=== PATIENT | male | born 1950 | race Caucasian/White ===

== ENCOUNTER 2021-03-12 20:12 | Inpatient (IN) ==
[2021-03-12 20:48] LABS: Basophils % 0.2 % (0.0-0.8); Hematocrit 42.3 VOL% (42.0-52.0); Immature Granulocytes % 1.3 %; Immature Granulocytes Absolute 0.08 #; Lymphocytes # 0.5 10*3/uL (1.4-4.0); Lymphocytes % 8.2 % (21.2-54.2); Mean Corpuscular HGB Conc 33.1 GM/DL (32-36); Mean Corpuscular Volume 82.8 FL (87-102); Mean Platelet Volume 10.1 FL (9.6-12.0); Monocytes % 4.7 % (1.7-12.7); Neutrophils % 85.6 % (38.7-73.9); Platelet Count 228 T/CUMM (130-400); Red Blood Count 5.11 MC/CUMM (3.8-5.5); Red Cell Distribution Width 14.3 % (9.3-17.3)
[2021-03-12 21:02] LABS: Alanine Aminotransferase 29 U/L (16-61); Albumin 2.6 G/DL (3.4-5.0); Alkaline Phosphatase 91 U/L (45-117); Aspartate Amino Transferase 34 U/L (0-37); Blood Urea Nitrogen 20 MG/DL (7-18); Calcium 8.1 MG/DL (8.5-10.1); Carbon Dioxide 20 MMOL/L (21-32); Estimated Glom Filtration Rate 115 ML/MIN; Glucose 471 MG/DL (74-106); Osmolality,Calculated 276.4 MOS/KG (273-304); Potassium 3.3 MMOL/L (3.5-5.1); Sodium 126 MMOL/L (136-145); Total Protein 7.3 G/DL (6.4-8.2)
[2021-03-12] MEDS ORDERED: ONDANSETRON 4 MG/2 ML VIAL IV STA (21:15)
[2021-03-12] MEDS ORDERED: PIPERACILLIN/TAZOBACTAM 3,375 MG in SODIUM CHLORIDE 0.9% 100 ML IV STA (21:15)
[2021-03-12] MEDS ORDERED: FUROSEMIDE 100 MG/10 ML VIAL IV STA (21:15)
[2021-03-12] MEDS ORDERED: INSULIN REGULAR 100 UNIT/ML SUBCUT STA (21:15)
[2021-03-12 21:37] LABS: Ferritin 303.4 ng/ml (26-388)
[2021-03-12] MEDS ORDERED: ENOXAPARIN 100 MG/ML SYRINGE SUBCUT STA (22:11)
[2021-03-12] MEDS ORDERED: POTASSIUM CHLORIDE 20 MEQ TABLET PO STA (22:12)
[2021-03-12] MEDS ORDERED: MAGNESIUM SULF RIDER 2 GM/50 ML PREMIX IV STA (22:12)
[2021-03-12] MEDS ORDERED: DEXAMETHASONE 4 MG/1 ML VIAL IM STA (22:14)
[2021-03-12 23:04] LABS: Bilirubin,Urine Negative (Negative); Blood, Urine Moderate mg/dL (Negative); Glucose,Urine (UA) >=500 mg/dL (Negative); Hyaline Casts,Urine 1 /LPF (0-3); Ketones,Urine 20 mg/dL (Negative); Mucus,Urine Occasional /LPF (Occasional); Nitrite,Urine Negative (Negative); Protein,Urine 100 MG/DL; RBC,Urine 3 /HPF (0-4); Squamous Epithelial Cell,Urine Occasional /HPF (0-10); Urine Appearance CLEAR (Clear); Urine Color Yellow (Yellow); Urine Specific Gravity 1.017 (1.001-1.035); Urine Urobilinogen < 2.0 EU/DL (0.2-1.0)
[2021-03-13] MEDS ORDERED: MELATONIN 3 MG TABLET PO PRN (02:54)
[2021-03-13] MEDS ORDERED: AZITHROMYCIN INJ 500 MG in SODIUM CHLORIDE 0.9% 250 ML IV ONE (02:54)
[2021-03-13] MEDS ORDERED: MAGNESIUM SULF RIDER 4 GM/100 ML PREMIX IV PRN (03:06)
[2021-03-13] MEDS ORDERED: MAGNESIUM SULF RIDER 2 GM/50 ML PREMIX IV PRN (03:06)
[2021-03-13] MEDS ORDERED: GLUCAGON 1 MG VIAL IM PRN (03:07)
[2021-03-13] MEDS ORDERED: ONDANSETRON 4 MG/2 ML VIAL IV PRN (03:07)
[2021-03-13] MEDS ORDERED: DEXTROSE 50% 25 GM/50 ML VIAL IV PRN (03:07)
[2021-03-13] MEDS ORDERED: SODIUM CHLORIDE 0.9% 1,000 ML IV SCH (03:30)
[2021-03-13 03:42] LABS: Basophils % 0.2 % (0.0-0.8); Hematocrit 40.8 VOL% (42.0-52.0); Hemoglobin 13.3 GM/DL (14.0-18.0); Immature Granulocytes % 0.8 %; Immature Granulocytes Absolute 0.04 #; Lymphocytes # 0.5 10*3/uL (1.4-4.0); Lymphocytes % 8.5 % (21.2-54.2); Mean Corpuscular HGB Conc 32.6 GM/DL (32-36); Mean Corpuscular Volume 82.6 FL (87-102); Mean Platelet Volume 9.8 FL (9.6-12.0); Monocytes % 3.6 % (1.7-12.7); Neutrophils % 86.9 % (38.7-73.9); Platelet Count 209 T/CUMM (130-400); Red Blood Count 4.94 MC/CUMM (3.8-5.5); Red Cell Distribution Width 14.3 % (9.3-17.3); White Blood Count 5.3 T/CUMM (4-12)
[2021-03-13 03:52] LABS: PT Patient Result 11.4 SECS (10.5-12.0)
[2021-03-13 04:03] LABS: Calcium 7.9 MG/DL (8.5-10.1); Osmolality,Calculated 275.1 MOS/KG (273-304); Potassium 3.3 MMOL/L (3.5-5.1)
[2021-03-13 04:07] LABS: Ferritin 325.5 ng/ml (26-388)
[2021-03-13 06:29] LABS: ABG Base Excess -1.2 MMOL/L (-2.5-2.5); ABG HCO3 24.2 MMOL/L (20-26); ABG Oxygen Saturation 79.7 % (95-100); ABG PCO2 43.2 MM HG (35-48); ABG PH 7.367 (7.35-7.45); ABG PO2 46.6 MM HG (80-95); ABG TCO2 25.6 MMOL/L (23-27)
[2021-03-13] MEDS: INSULIN REGULAR 100 UNIT/ML SUBCUT SCH ×3 (08:30→17:01)
[2021-03-13] MEDS: NYSTATIN POWDER 15 GM BOTTLE TOP SCH ×2 (09:15→15:45)
[2021-03-13] MEDS: NYSTATIN CREAM 15 GM TUBE TOP SCH ×2 (09:15→15:45)
[2021-03-13] MEDS: DEXAMETHASONE 4 MG/1 ML VIAL IV SCH (11:00)
[2021-03-13] MEDS: IVERMECTIN 3 MG TABLET PO SCH (11:02)
[2021-03-13] MEDS: ASCORBIC ACID 500 MG TABLET PO SCH ×2 (11:03→22:25)
[2021-03-13] MEDS: CHOLECALCIFEROL 1,000 UNIT TABLET PO SCH (11:04)
[2021-03-13] MEDS: ZINC GLUCONATE 50 MG TABLET PO SCH (11:04)
[2021-03-13] MEDS: CETIRIZINE 10 MG TABLET PO SCH (11:04)
[2021-03-13] MEDS: FAMOTIDINE 20 MG TABLET PO SCH ×2 (13:50→22:25)
[2021-03-13] MEDS: SODIUM CHLORIDE 0.9% 1,000 ML IV SCH (15:46)
[2021-03-13] MEDS ORDERED: INSULIN GLARGINE 100 UNIT/ML SUBCUT SCH (21:00)
[2021-03-13] MEDS ORDERED: NICOTINE 21 MG/24 HR PATCH TRANSDERM SCH (22:00)
[2021-03-13] MEDS: INSULIN GLARGINE 100 UNIT/ML SUBCUT SCH (22:25)
[2021-03-13] MEDS: ENOXAPARIN 40 MG/0.4 ML SYRINGE SUBCUT SCH (22:25)
[2021-03-14] MEDS: INSULIN REGULAR 100 UNIT/ML SUBCUT SCH ×5 (00:15→23:29)
[2021-03-14] MEDS: NYSTATIN POWDER 15 GM BOTTLE TOP SCH ×4 (00:15→21:25)
[2021-03-14] MEDS: SODIUM CHLORIDE 0.9% 1,000 ML IV SCH (00:16)
[2021-03-14] MEDS: NYSTATIN CREAM 15 GM TUBE TOP SCH ×4 (00:16→21:25)
[2021-03-14] MEDS ORDERED: NICOTINE 21 MG/24 HR PATCH TRANSDERM PRN (00:29)
[2021-03-14] MEDS: ACETAMINOPHEN 325 MG TABLET PO PRN ×2 (05:02→11:50)
[2021-03-14 05:06] LABS: Basophils % 0.2 % (0.0-0.8); Hematocrit 40.8 VOL% (42.0-52.0); Immature Granulocytes Absolute 0.05 #; Lymphocytes # 0.5 10*3/uL (1.4-4.0); Lymphocytes % 9.8 % (21.2-54.2); Mean Corpuscular HGB Conc 31.9 GM/DL (32-36); Mean Corpuscular Volume 85.4 FL (87-102); Mean Platelet Volume 10.1 FL (9.6-12.0); Monocytes % 2.1 % (1.7-12.7); Neutrophils % 86.9 % (38.7-73.9); Platelet Count 196 T/CUMM (130-400); Red Blood Count 4.78 MC/CUMM (3.8-5.5); Red Cell Distribution Width 14.2 % (9.3-17.3); White Blood Count 5.2 T/CUMM (4-12)
[2021-03-14 05:19] LABS: Calcium 8.2 MG/DL (8.5-10.1); Osmolality,Calculated 268.9 MOS/KG (273-304); Potassium 3.4 MMOL/L (3.5-5.1)
[2021-03-14 05:33] LABS: Lymphocytes 4 % (20-55); Segmented Neutrophils 94 % (50-85); Total Cells Counted 100
[2021-03-14 05:34] LABS: Platelet Estimate Normal
[2021-03-14] MEDS: FAMOTIDINE 20 MG TABLET PO SCH ×2 (10:02→21:25)
[2021-03-14] MEDS: DEXAMETHASONE 4 MG/1 ML VIAL IV SCH (10:02)
[2021-03-14] MEDS: ASCORBIC ACID 500 MG TABLET PO SCH ×2 (10:03→21:25)
[2021-03-14] MEDS: ZINC GLUCONATE 50 MG TABLET PO SCH (10:03)
[2021-03-14] MEDS: CHOLECALCIFEROL 1,000 UNIT TABLET PO SCH (10:03)
[2021-03-14] MEDS: CETIRIZINE 10 MG TABLET PO SCH (10:03)
[2021-03-14] MEDS: AZITHROMYCIN 250 MG TABLET PO SCH (10:03)
[2021-03-14] MEDS: POTASSIUM CHLORIDE 20 MEQ TABLET PO PRN ×3 (10:06→17:00)
[2021-03-14] MEDS: ALBUTEROL INHALER 18 GM INH SCH ×3 (13:50→18:06)
[2021-03-14] MEDS: IVERMECTIN 3 MG TABLET PO SCH (17:02)
[2021-03-14] MEDS: INSULIN GLARGINE 100 UNIT/ML SUBCUT SCH (21:25)
[2021-03-14] MEDS: ENOXAPARIN 40 MG/0.4 ML SYRINGE SUBCUT SCH (21:25)
[2021-03-15 05:31] LABS: ABG HCO3 24.4 MMOL/L (20-26); ABG Oxygen Saturation 95.5 % (95-100); ABG PCO2 37.8 MM HG (35-48); ABG PH 7.416 (7.35-7.45); ABG PO2 79.9 MM HG (80-95); ABG TCO2 21.5 MMOL/L (23-27)
[2021-03-15] MEDS: ALBUTEROL INHALER 18 GM INH SCH ×4 (06:08→21:36)
[2021-03-15 06:55] LABS: Basophils % 0.3 % (0.0-0.8); Hematocrit 41.8 VOL% (42.0-52.0); Hemoglobin 13.9 GM/DL (14.0-18.0); Immature Granulocytes % 1.6 %; Immature Granulocytes Absolute 0.09 #; Lymphocytes # 0.6 10*3/uL (1.4-4.0); Lymphocytes % 9.9 % (21.2-54.2); Mean Corpuscular HGB Conc 33.3 GM/DL (32-36); Mean Corpuscular Volume 84.8 FL (87-102); Monocytes % 1.7 % (1.7-12.7); Neutrophils % 86.5 % (38.7-73.9); Platelet Count 200 T/CUMM (130-400); Red Blood Count 4.93 MC/CUMM (3.8-5.5); Red Cell Distribution Width 14.4 % (9.3-17.3); White Blood Count 5.8 T/CUMM (4-12)
[2021-03-15 07:25] LABS: Albumin 2.3 G/DL (3.4-5.0); Bilirubin,Direct 0.15 MG/DL (0.0-0.20); Bilirubin,Total 1.1 MG/DL (0.20-1.00)
[2021-03-15 07:41] LABS: Albumin 2.3 G/DL (3.4-5.0); Bilirubin,Total 0.4 MG/DL (0.20-1.00); Calcium 8.7 MG/DL (8.5-10.1); Osmolality,Calculated 266.8 MOS/KG (273-304); Potassium 3.7 MMOL/L (3.5-5.1); Total Protein 6.9 G/DL (6.4-8.2)
[2021-03-15] MEDS ORDERED: MORPHINE 2 MG/1 ML SYRINGE IV PRN (11:47)
[2021-03-15] MEDS ORDERED: guaiFENesin 200 MG/10 ML UDCUP PO PRN (11:47)
[2021-03-15] MEDS: ACETAMINOPHEN 325 MG TABLET PO PRN ×2 (12:02→22:35)
[2021-03-15] MEDS: NYSTATIN CREAM 15 GM TUBE TOP SCH ×3 (12:03→20:25)
[2021-03-15] MEDS: NYSTATIN POWDER 15 GM BOTTLE TOP SCH ×3 (12:03→20:25)
[2021-03-15] MEDS: AZITHROMYCIN 250 MG TABLET PO SCH (12:24)
[2021-03-15] MEDS: IVERMECTIN 3 MG TABLET PO SCH (12:25)
[2021-03-15] MEDS: FAMOTIDINE 20 MG TABLET PO SCH ×2 (12:25→20:25)
[2021-03-15] MEDS: CETIRIZINE 10 MG TABLET PO SCH (12:25)
[2021-03-15] MEDS: CHOLECALCIFEROL 1,000 UNIT TABLET PO SCH (12:25)
[2021-03-15] MEDS: ASCORBIC ACID 500 MG TABLET PO SCH ×2 (12:25→20:25)
[2021-03-15] MEDS: INSULIN REGULAR 100 UNIT/ML SUBCUT SCH ×4 (12:26→22:27)
[2021-03-15] MEDS: DEXAMETHASONE 4 MG/1 ML VIAL IV SCH (12:26)
[2021-03-15] MEDS: ZINC GLUCONATE 50 MG TABLET PO SCH (12:45)
[2021-03-15] MEDS: ENOXAPARIN 40 MG/0.4 ML SYRINGE SUBCUT SCH (20:25)
[2021-03-15] MEDS: INSULIN GLARGINE 100 UNIT/ML SUBCUT SCH (22:27)
[2021-03-16] MEDS: ALBUTEROL INHALER 18 GM INH SCH ×4 (01:02→18:37)
[2021-03-16 05:18] LABS: Basophils % 0.2 % (0.0-0.8); Hematocrit 39.1 VOL% (42.0-52.0); Hemoglobin 12.5 GM/DL (14.0-18.0); Immature Granulocytes % 1.9 %; Immature Granulocytes Absolute 0.08 #; Lymphocytes # 0.4 10*3/uL (1.4-4.0); Lymphocytes % 10.4 % (21.2-54.2); Mean Corpuscular Volume 85.7 FL (87-102); Mean Platelet Volume 10.6 FL (9.6-12.0); Monocytes % 2.9 % (1.7-12.7); Neutrophils % 84.6 % (38.7-73.9); Platelet Count 215 T/CUMM (130-400); Red Blood Count 4.56 MC/CUMM (3.8-5.5); Red Cell Distribution Width 14.4 % (9.3-17.3); White Blood Count 4.1 T/CUMM (4-12)
[2021-03-16 05:43] LABS: Lymphocytes 5 % (20-55); Platelet Estimate Adequate; Segmented Neutrophils 95 % (50-85); Total Cells Counted 100
[2021-03-16 05:45] LABS: Albumin 1.9 G/DL (3.4-5.0); Bilirubin,Direct 0.2 MG/DL (0.0-0.20); Bilirubin,Indirect 0.3 MG/DL (0.0-1.0); Bilirubin,Total 0.5 MG/DL (0.20-1.00); Calcium 8.8 MG/DL (8.5-10.1); Osmolality,Calculated 278.2 MOS/KG (273-304); Potassium 3.6 MMOL/L (3.5-5.1); Total Protein 6.6 G/DL (6.4-8.2)
[2021-03-16] MEDS: INSULIN REGULAR 100 UNIT/ML SUBCUT SCH ×4 (07:30→21:45)
[2021-03-16] MEDS: NYSTATIN POWDER 15 GM BOTTLE TOP SCH ×3 (09:00→21:45)
[2021-03-16] MEDS: NYSTATIN CREAM 15 GM TUBE TOP SCH ×3 (10:02→21:45)
[2021-03-16] MEDS: ASCORBIC ACID 500 MG TABLET PO SCH ×2 (10:02→21:45)
[2021-03-16] MEDS: IVERMECTIN 3 MG TABLET PO SCH (10:03)
[2021-03-16] MEDS: CETIRIZINE 10 MG TABLET PO SCH (10:03)
[2021-03-16] MEDS: FAMOTIDINE 20 MG TABLET PO SCH ×2 (10:03→21:45)
[2021-03-16] MEDS: INSULIN GLARGINE 100 UNIT/ML SUBCUT SCH ×2 (11:34→21:45)
[2021-03-16] MEDS: CHOLECALCIFEROL 5,000 UNIT TABLET PO SCH (14:00)
[2021-03-16] MEDS: ZINC GLUCONATE 50 MG TABLET PO SCH (14:00)
[2021-03-16] MEDS: AZITHROMYCIN 250 MG TABLET PO SCH (14:57)
[2021-03-16] MEDS: methylPREDNISolone SOD SUC 125 MG/2 ML VIAL IV SCH ×3 (14:57→21:45)
[2021-03-16] MEDS: ACETAMINOPHEN/CODEINE 120-12 MG/5 ML 12.5 ML UDCUP PO PRN ×2 (17:16→21:45)
[2021-03-16] MEDS ORDERED: CLORAZEPATE 3.75 MG TABLET PO PRN (19:15)
[2021-03-16] MEDS: CLORAZEPATE 3.75 MG TABLET PO PRN (21:45)
[2021-03-16] MEDS: ENOXAPARIN 40 MG/0.4 ML SYRINGE SUBCUT SCH (21:45)
[2021-03-17] MEDS: ALBUTEROL INHALER 18 GM INH SCH ×4 (01:18→19:50)
[2021-03-17] MEDS: methylPREDNISolone SOD SUC 125 MG/2 ML VIAL IV SCH (02:30)
[2021-03-17 04:02] LABS: ABG Base Excess 2.8 MMOL/L (-2.5-2.5); ABG HCO3 27.9 MMOL/L (20-26); ABG Oxygen Saturation 95.1 % (95-100); ABG PCO2 44.9 MM HG (35-48); ABG PH 7.411 (7.35-7.45); ABG PO2 77.4 MM HG (80-95); ABG TCO2 29.3 MMOL/L (23-27)
[2021-03-17 06:22] LABS: Basophils % 0.5 % (0.0-0.8); Hematocrit 38.3 VOL% (42.0-52.0); Hemoglobin 12.4 GM/DL (14.0-18.0); Immature Granulocytes % 2.3 %; Immature Granulocytes Absolute 0.09 #; Lymphocytes # 0.3 10*3/uL (1.4-4.0); Lymphocytes % 8.4 % (21.2-54.2); Mean Corpuscular HGB Conc 32.4 GM/DL (32-36); Mean Corpuscular Volume 85.7 FL (87-102); Mean Platelet Volume 10.4 FL (9.6-12.0); Monocytes % 1.8 % (1.7-12.7); Platelet Count 258 T/CUMM (130-400); Red Blood Count 4.47 MC/CUMM (3.8-5.5); Red Cell Distribution Width 14.3 % (9.3-17.3); White Blood Count 3.8 T/CUMM (4-12)
[2021-03-17 06:46] LABS: Hypochromasia Slight; Lymphocytes 12 % (20-55); Microcytosis Slight; Platelet Estimate Adequate; Segmented Neutrophils 86 % (50-85); Total Cells Counted 100
[2021-03-17 06:52] LABS: Bilirubin,Total 1.1 MG/DL (0.20-1.00); Ferritin 423.2 ng/ml (26-388); Osmolality,Calculated 270.7 MOS/KG (273-304); Potassium 3.8 MMOL/L (3.5-5.1); Total Protein 6.7 G/DL (6.4-8.2)
[2021-03-17] MEDS: ACETAMINOPHEN/CODEINE 120-12 MG/5 ML 12.5 ML UDCUP PO PRN ×2 (07:00→22:13)
[2021-03-17] MEDS ORDERED: methylPREDNISolone SOD SUC 125 MG/2 ML VIAL IV SCH (07:58)
[2021-03-17] MEDS: INSULIN REGULAR 100 UNIT/ML SUBCUT SCH ×4 (09:30→21:00)
[2021-03-17] MEDS: CETIRIZINE 10 MG TABLET PO SCH (10:32)
[2021-03-17] MEDS: ASCORBIC ACID 500 MG TABLET PO SCH ×2 (10:32→22:13)
[2021-03-17] MEDS: CHOLECALCIFEROL 5,000 UNIT TABLET PO SCH (10:32)
[2021-03-17] MEDS: NYSTATIN CREAM 15 GM TUBE TOP SCH ×3 (10:36→22:12)
[2021-03-17] MEDS: NYSTATIN POWDER 15 GM BOTTLE TOP SCH ×3 (10:36→22:12)
[2021-03-17] MEDS: IVERMECTIN 3 MG TABLET PO SCH (10:37)
[2021-03-17] MEDS: FAMOTIDINE 20 MG TABLET PO SCH ×2 (11:15→22:12)
[2021-03-17] MEDS: methylPREDNISolone SOD SUC 40 MG/1 ML VIAL IV SCH ×2 (12:00→19:48)
[2021-03-17] MEDS: CLORAZEPATE 3.75 MG TABLET PO PRN ×2 (13:20→22:13)
[2021-03-17] MEDS: AZITHROMYCIN 250 MG TABLET PO SCH (14:58)
[2021-03-17] MEDS: ACETAMINOPHEN 325 MG TABLET PO PRN (16:00)
[2021-03-17] MEDS: INSULIN GLARGINE 100 UNIT/ML SUBCUT SCH ×3 (19:00→22:15)
[2021-03-17] MEDS: ZINC GLUCONATE 50 MG TABLET PO SCH ×2 (19:45→22:11)
[2021-03-17] MEDS: ENOXAPARIN 40 MG/0.4 ML SYRINGE SUBCUT SCH (22:12)
[2021-03-18] MEDS: methylPREDNISolone SOD SUC 40 MG/1 ML VIAL IV SCH ×4 (00:25→17:19)
[2021-03-18] MEDS: ALBUTEROL INHALER 18 GM INH SCH ×4 (01:10→19:00)
[2021-03-18] MEDS: ACETAMINOPHEN/CODEINE 120-12 MG/5 ML 12.5 ML UDCUP PO PRN ×2 (04:35→21:45)
[2021-03-18 06:50] LABS: Basophils % 0.5 % (0.0-0.8); Hematocrit 38.6 VOL% (42.0-52.0); Hemoglobin 12.1 GM/DL (14.0-18.0); Immature Granulocytes % 1.9 %; Immature Granulocytes Absolute 0.08 #; Lymphocytes # 0.3 10*3/uL (1.4-4.0); Lymphocytes % 5.9 % (21.2-54.2); Mean Corpuscular HGB Conc 31.3 GM/DL (32-36); Mean Platelet Volume 10.8 FL (9.6-12.0); Monocytes % 2.8 % (1.7-12.7); Neutrophils % 88.9 % (38.7-73.9); Platelet Count 281 T/CUMM (130-400); Red Blood Count 4.49 MC/CUMM (3.8-5.5); Red Cell Distribution Width 14.2 % (9.3-17.3); White Blood Count 4.2 T/CUMM (4-12)
[2021-03-18 07:17] LABS: Calcium 9.2 MG/DL (8.5-10.1); Ferritin 427.2 ng/ml (26-388); Osmolality,Calculated 270.9 MOS/KG (273-304); Potassium 3.5 MMOL/L (3.5-5.1)
[2021-03-18] MEDS: INSULIN REGULAR 100 UNIT/ML SUBCUT SCH ×4 (08:02→21:15)
[2021-03-18] MEDS: FAMOTIDINE 20 MG TABLET PO SCH ×2 (09:42→21:15)
[2021-03-18] MEDS: ASCORBIC ACID 500 MG TABLET PO SCH ×2 (09:42→21:15)
[2021-03-18] MEDS: CHOLECALCIFEROL 5,000 UNIT TABLET PO SCH (09:42)
[2021-03-18] MEDS: ZINC GLUCONATE 50 MG TABLET PO SCH (09:42)
[2021-03-18] MEDS: NYSTATIN POWDER 15 GM BOTTLE TOP SCH ×3 (09:42→21:30)
[2021-03-18] MEDS: NYSTATIN CREAM 15 GM TUBE TOP SCH ×3 (09:42→21:30)
[2021-03-18] MEDS: CETIRIZINE 10 MG TABLET PO SCH (09:42)
[2021-03-18] MEDS: INSULIN GLARGINE 100 UNIT/ML SUBCUT SCH ×2 (09:42→21:15)
[2021-03-18 11:49] LABS: Band Neutrophils 1 % (0-10); Hypochromasia 1+; Lymphocytes 3 % (20-55); Platelet Estimate Normal; Polychromasia Slight; Segmented Neutrophils 94 % (50-85); Total Cells Counted 100
[2021-03-18] MEDS: CLORAZEPATE 3.75 MG TABLET PO PRN (21:15)
[2021-03-18] MEDS: ENOXAPARIN 40 MG/0.4 ML SYRINGE SUBCUT SCH (21:17)
[2021-03-19] MEDS: methylPREDNISolone SOD SUC 40 MG/1 ML VIAL IV SCH ×4 (01:15→18:05)
[2021-03-19] MEDS: ALBUTEROL INHALER 18 GM INH SCH ×4 (01:15→20:18)
[2021-03-19 04:17] LABS: ABG Base Excess 5.6 MMOL/L (-2.5-2.5); ABG HCO3 29.1 MMOL/L (20-26); ABG PCO2 38.5 MM HG (35-48); ABG PH 7.496 (7.35-7.45); ABG PO2 53.8 MM HG (80-95); ABG TCO2 30.3 MMOL/L (23-27)
[2021-03-19] MEDS: CLORAZEPATE 3.75 MG TABLET PO PRN ×2 (05:05→20:19)
[2021-03-19] MEDS: ACETAMINOPHEN/CODEINE 120-12 MG/5 ML 12.5 ML UDCUP PO PRN (05:15)
[2021-03-19 05:48] LABS: Basophils % 0.8 % (0.0-0.8); Hematocrit 40.4 VOL% (42.0-52.0); Hemoglobin 12.9 GM/DL (14.0-18.0); Immature Granulocytes % 1.8 %; Immature Granulocytes Absolute 0.07 #; Lymphocytes # 0.2 10*3/uL (1.4-4.0); Lymphocytes % 6.1 % (21.2-54.2); Mean Corpuscular HGB Conc 31.9 GM/DL (32-36); Mean Corpuscular Volume 85.1 FL (87-102); Mean Platelet Volume 10.4 FL (9.6-12.0); Monocytes % 3.1 % (1.7-12.7); Neutrophils % 88.2 % (38.7-73.9); Platelet Count 322 T/CUMM (130-400); Red Blood Count 4.75 MC/CUMM (3.8-5.5); Red Cell Distribution Width 14.1 % (9.3-17.3); White Blood Count 3.9 T/CUMM (4-12)
[2021-03-19 06:11] LABS: Osmolality,Calculated 273.4 MOS/KG (273-304); Potassium 3.6 MMOL/L (3.5-5.1)
[2021-03-19] MEDS: ZINC GLUCONATE 50 MG TABLET PO SCH (09:53)
[2021-03-19] MEDS: ASCORBIC ACID 500 MG TABLET PO SCH ×2 (09:53→20:19)
[2021-03-19] MEDS: CHOLECALCIFEROL 5,000 UNIT TABLET PO SCH (09:53)
[2021-03-19] MEDS: CETIRIZINE 10 MG TABLET PO SCH (09:54)
[2021-03-19] MEDS: FAMOTIDINE 20 MG TABLET PO SCH ×2 (09:54→20:19)
[2021-03-19] MEDS: INSULIN REGULAR 100 UNIT/ML SUBCUT SCH ×4 (09:54→20:18)
[2021-03-19] MEDS: INSULIN GLARGINE 100 UNIT/ML SUBCUT SCH ×2 (09:54→20:18)
[2021-03-19] MEDS: NYSTATIN POWDER 15 GM BOTTLE TOP SCH ×3 (09:55→20:19)
[2021-03-19] MEDS: NYSTATIN CREAM 15 GM TUBE TOP SCH ×3 (09:55→20:19)
[2021-03-19 10:34] LABS: Hypochromasia 2+; Lymphocytes 2 % (20-55); Platelet Estimate Normal; Segmented Neutrophils 98 % (50-85); Total Cells Counted 100
[2021-03-19] MEDS: POTASSIUM CHLORIDE 20 MEQ TABLET PO PRN ×2 (13:46→16:07)
[2021-03-19 14:19] LABS: ABG Base Excess 6.5 MMOL/L (-2.5-2.5); ABG Oxygen Saturation 83.8 % (95-100); ABG PCO2 40.3 MM HG (35-48); ABG PH 7.486 (7.35-7.45); ABG TCO2 26.6 MMOL/L (23-27)
[2021-03-19] MEDS: ENOXAPARIN 40 MG/0.4 ML SYRINGE SUBCUT SCH (20:18)
[2021-03-20] MEDS: MELATONIN 3 MG TABLET PO PRN ×2 (00:04→21:08)
[2021-03-20] MEDS: methylPREDNISolone SOD SUC 40 MG/1 ML VIAL IV SCH ×5 (00:13→23:19)
[2021-03-20] MEDS: ALBUTEROL INHALER 18 GM INH SCH ×4 (00:13→18:05)
[2021-03-20] MEDS ORDERED: hydrALAZINE 20 MG/1 ML VIAL IV PRN (03:06)
[2021-03-20 05:08] LABS: ABG Base Excess 7.2 MMOL/L (-2.5-2.5); ABG HCO3 29.7 MMOL/L (20-26); ABG Oxygen Saturation 85.4 % (95-100); ABG PH 7.546 (7.35-7.45); ABG PO2 48.4 MM HG (80-95); ABG TCO2 30.7 MMOL/L (23-27)
[2021-03-20 05:24] LABS: Basophils % 0.5 % (0.0-0.8); Hematocrit 40.2 VOL% (42.0-52.0); Hemoglobin 13.1 GM/DL (14.0-18.0); Immature Granulocytes Absolute 0.19 #; Lymphocytes # 0.2 10*3/uL (1.4-4.0); Lymphocytes % 5.2 % (21.2-54.2); Mean Corpuscular HGB Conc 32.6 GM/DL (32-36); Mean Corpuscular Volume 84.1 FL (87-102); Monocytes % 2.9 % (1.7-12.7); Neutrophils % 86.4 % (38.7-73.9); Platelet Count 304 T/CUMM (130-400); Red Blood Count 4.78 MC/CUMM (3.8-5.5); Red Cell Distribution Width 13.8 % (9.3-17.3); White Blood Count 3.8 T/CUMM (4-12)
[2021-03-20 05:55] LABS: Albumin 2.1 G/DL (3.4-5.0); Bilirubin,Total 0.7 MG/DL (0.20-1.00); Calcium 8.9 MG/DL (8.5-10.1); Ferritin 299.6 ng/ml (26-388); Osmolality,Calculated 278.7 MOS/KG (273-304); Potassium 3.7 MMOL/L (3.5-5.1); Total Protein 6.6 G/DL (6.4-8.2)
[2021-03-20 05:56] LABS: Lymphocytes 3 % (20-55); Segmented Neutrophils 94 % (50-85); Total Cells Counted 100
[2021-03-20 05:57] LABS: Platelet Estimate Normal
[2021-03-20] MEDS: INSULIN REGULAR 100 UNIT/ML SUBCUT SCH ×4 (09:39→21:07)
[2021-03-20] MEDS: INSULIN GLARGINE 100 UNIT/ML SUBCUT SCH ×2 (09:40→21:06)
[2021-03-20] MEDS: NYSTATIN POWDER 15 GM BOTTLE TOP SCH ×3 (09:40→21:08)
[2021-03-20] MEDS: lisinopriL 10 MG TABLET PO SCH (09:41)
[2021-03-20] MEDS: ZINC GLUCONATE 50 MG TABLET PO SCH (09:41)
[2021-03-20] MEDS: NYSTATIN CREAM 15 GM TUBE TOP SCH ×3 (09:42→21:08)
[2021-03-20] MEDS: CHOLECALCIFEROL 5,000 UNIT TABLET PO SCH (09:42)
[2021-03-20] MEDS: CETIRIZINE 10 MG TABLET PO SCH (10:28)
[2021-03-20] MEDS: ASCORBIC ACID 500 MG TABLET PO SCH ×2 (10:28→21:07)
[2021-03-20] MEDS: FAMOTIDINE 20 MG TABLET PO SCH ×2 (11:46→21:08)
[2021-03-20] MEDS: CLORAZEPATE 3.75 MG TABLET PO PRN ×2 (11:46→19:30)
[2021-03-20] MEDS: ENOXAPARIN 100 MG/ML SYRINGE SUBCUT SCH ×2 (11:47→21:07)
[2021-03-20] MEDS ORDERED: FUROSEMIDE 40 MG/4 ML VIAL IV ONE (14:53)
[2021-03-20] MEDS: ACETAMINOPHEN/CODEINE 120-12 MG/5 ML 12.5 ML UDCUP PO PRN (21:38)
[2021-03-21] MEDS: ALBUTEROL INHALER 18 GM INH SCH ×5 (02:00→18:36)
[2021-03-21 03:44] LABS: ABG Base Excess 8.7 MMOL/L (-2.5-2.5); ABG HCO3 32.2 MMOL/L (20-26); ABG Oxygen Saturation 88.9 % (95-100); ABG PCO2 42.5 MM HG (35-48); ABG PH 7.497 (7.35-7.45); ABG PO2 56.8 MM HG (80-95); ABG TCO2 28.8 MMOL/L (23-27); Allen Test Positive; Pt O2 Delivery Device Other
[2021-03-21 04:56] LABS: Basophils % 0.2 % (0.0-0.8); Hematocrit 39.5 VOL% (42.0-52.0); Hemoglobin 12.3 GM/DL (14.0-18.0); Immature Granulocytes % 5.9 %; Immature Granulocytes Absolute 0.24 #; Lymphocytes # 0.2 10*3/uL (1.4-4.0); Lymphocytes % 4.9 % (21.2-54.2); Mean Corpuscular HGB Conc 31.1 GM/DL (32-36); Mean Corpuscular Volume 86.4 FL (87-102); Mean Platelet Volume 10.3 FL (9.6-12.0); Monocytes % 2.5 % (1.7-12.7); Neutrophils % 86.5 % (38.7-73.9); Platelet Count 296 T/CUMM (130-400); Red Blood Count 4.57 MC/CUMM (3.8-5.5); White Blood Count 4.1 T/CUMM (4-12)
[2021-03-21 05:25] LABS: Hypochromasia Slight; Lymphocytes 5 % (20-55); Microcytosis Slight; Platelet Estimate Adequate; Segmented Neutrophils 93 % (50-85); Total Cells Counted 100
[2021-03-21 05:26] LABS: Albumin 1.9 G/DL (3.4-5.0); Bilirubin,Total 0.5 MG/DL (0.20-1.00); Calcium 8.2 MG/DL (8.5-10.1); Potassium 4.1 MMOL/L (3.5-5.1); Total Protein 6.2 G/DL (6.4-8.2)
[2021-03-21] MEDS: CLORAZEPATE 3.75 MG TABLET PO PRN (06:00)
[2021-03-21] MEDS: methylPREDNISolone SOD SUC 40 MG/1 ML VIAL IV SCH ×3 (06:17→18:36)
[2021-03-21] MEDS: INSULIN REGULAR 100 UNIT/ML SUBCUT SCH ×4 (08:08→21:00)
[2021-03-21] MEDS: ENOXAPARIN 100 MG/ML SYRINGE SUBCUT SCH ×2 (08:09→20:51)
[2021-03-21] MEDS: INSULIN GLARGINE 100 UNIT/ML SUBCUT SCH ×2 (08:09→20:52)
[2021-03-21] MEDS: ZINC GLUCONATE 50 MG TABLET PO SCH (08:10)
[2021-03-21] MEDS: lisinopriL 10 MG TABLET PO SCH (08:10)
[2021-03-21] MEDS: ASCORBIC ACID 500 MG TABLET PO SCH ×2 (08:10→20:52)
[2021-03-21] MEDS: FAMOTIDINE 20 MG TABLET PO SCH ×2 (08:10→20:52)
[2021-03-21] MEDS: NYSTATIN CREAM 15 GM TUBE TOP SCH ×3 (08:11→21:00)
[2021-03-21] MEDS: NYSTATIN POWDER 15 GM BOTTLE TOP SCH ×3 (08:11→21:00)
[2021-03-21] MEDS: CETIRIZINE 10 MG TABLET PO SCH (08:12)
[2021-03-21] MEDS: CHOLECALCIFEROL 5,000 UNIT TABLET PO SCH (08:14)
[2021-03-21] MEDS ORDERED: OLANZapine 10 MG VIAL IM ONE (11:00)
[2021-03-21] MEDS ORDERED: DEXMEDETOMIDINE 200 MCG in SODIUM CHLORIDE 0.9% 48 ML IV PRN (11:12)
[2021-03-21 12:51] LABS: ABG Base Excess 9.4 MMOL/L (-2.5-2.5); ABG HCO3 32.9 MMOL/L (20-26); ABG PCO2 41.1 MM HG (35-48); ABG PH 7.517 (7.35-7.45); ABG PO2 53.9 MM HG (80-95)
[2021-03-21] MEDS ORDERED: OLANZapine 10 MG VIAL IM PRN (13:08)
[2021-03-21] MEDS ORDERED: DEXMEDETOMIDINE 400 MCG in SODIUM CHLORIDE 0.9% 96 ML IV PRN (13:55)
[2021-03-21] MEDS ORDERED: ETOMIDATE 20 MG/10 ML VIAL IV ONE ×4 (14:29→15:41)
[2021-03-21] MEDS ORDERED: SUCCINYLCHOLINE 200 MG/10 ML VIAL ONE (14:30)
[2021-03-21] MEDS ORDERED: SUCCINYLCHOLINE 200 MG/10 ML VIAL IV ONE ×2 (15:40→15:41)
[2021-03-21] MEDS ORDERED: LACTATED RINGERS 500 ML IV ONE (15:45)
[2021-03-21] MEDS: MIDAZOLAM 100 MG in SODIUM CHLORIDE 0.9% 80 ML IV PRN (16:00)
[2021-03-21] MEDS ORDERED: MIDAZOLAM 2 MG/2 ML VIAL IV ONE (16:06)
[2021-03-21] MEDS ORDERED: GLUCAGON 1 MG VIAL IM PRN (16:22)
[2021-03-21] MEDS ORDERED: DEXTROSE 50% 25 GM/50 ML VIAL IV PRN (16:22)
[2021-03-21 17:04] LABS: ABG Base Excess 8.1 MMOL/L (-2.5-2.5); ABG HCO3 31.7 MMOL/L (20-26); ABG Oxygen Saturation 90.6 % (95-100); ABG PCO2 50.5 MM HG (35-48); ABG PH 7.435 (7.35-7.45); ABG PO2 64.4 MM HG (80-95); ABG TCO2 29.7 MMOL/L (23-27)
[2021-03-22] MEDS: ALBUTEROL INHALER 18 GM INH SCH ×4 (01:00→18:10)
[2021-03-22] MEDS: methylPREDNISolone SOD SUC 40 MG/1 ML VIAL IV SCH ×4 (01:30→22:43)
[2021-03-22] MEDS: MIDAZOLAM 100 MG in SODIUM CHLORIDE 0.9% 80 ML IV PRN ×3 (03:45→18:37)
[2021-03-22 04:13] LABS: ABG Base Excess 6.1 MMOL/L (-2.5-2.5); ABG HCO3 32.8 MMOL/L (20-26); ABG PCO2 56.4 MM HG (35-48); ABG PH 7.383 (7.35-7.45); ABG PO2 69.9 MM HG (80-95); ABG TCO2 34.6 MMOL/L (23-27); Allen Test Positive; Pt O2 Delivery Device Ventilator
[2021-03-22 05:11] LABS: Basophils % 0.5 % (0.0-0.8); Hematocrit 40.8 VOL% (42.0-52.0); Hemoglobin 12.5 GM/DL (14.0-18.0); Immature Granulocytes % 2.4 %; Immature Granulocytes Absolute 0.15 #; Lymphocytes # 0.2 10*3/uL (1.4-4.0); Lymphocytes % 3.7 % (21.2-54.2); Mean Corpuscular HGB Conc 30.6 GM/DL (32-36); Mean Corpuscular Volume 87.9 FL (87-102); Mean Platelet Volume 10.5 FL (9.6-12.0); Monocytes % 3.5 % (1.7-12.7); Neutrophils % 89.9 % (38.7-73.9); Platelet Count 311 T/CUMM (130-400); Red Blood Count 4.64 MC/CUMM (3.8-5.5); Red Cell Distribution Width 14.2 % (9.3-17.3); White Blood Count 6.2 T/CUMM (4-12)
[2021-03-22 05:35] LABS: Hypochromasia Slight; Lymphocytes 2 % (20-55); Microcytosis Slight; Platelet Estimate Adequate; Segmented Neutrophils 96 % (50-85); Total Cells Counted 100
[2021-03-22 05:38] LABS: Bilirubin,Total 0.5 MG/DL (0.20-1.00); Calcium 8.6 MG/DL (8.5-10.1); Osmolality,Calculated 284.7 MOS/KG (273-304); Potassium 3.9 MMOL/L (3.5-5.1)
[2021-03-22] MEDS: ASCORBIC ACID 500 MG TABLET PO SCH ×2 (08:03→20:13)
[2021-03-22] MEDS: lisinopriL 10 MG TABLET PO SCH (08:03)
[2021-03-22] MEDS: CETIRIZINE 10 MG TABLET PO SCH (08:03)
[2021-03-22] MEDS: CHOLECALCIFEROL 5,000 UNIT TABLET PO SCH (08:03)
[2021-03-22] MEDS: FAMOTIDINE 20 MG TABLET PO SCH ×2 (08:04→20:13)
[2021-03-22] MEDS: INSULIN GLARGINE 100 UNIT/ML SUBCUT SCH ×2 (08:04→20:13)
[2021-03-22] MEDS: ZINC GLUCONATE 50 MG TABLET PO SCH (08:04)
[2021-03-22] MEDS: ENOXAPARIN 100 MG/ML SYRINGE SUBCUT SCH ×2 (08:04→20:13)
[2021-03-22] MEDS: NYSTATIN POWDER 15 GM BOTTLE TOP SCH ×3 (09:31→21:18)
[2021-03-22] MEDS: NYSTATIN CREAM 15 GM TUBE TOP SCH ×3 (09:31→21:18)
[2021-03-22] MEDS: INSULIN REGULAR 100 UNIT/ML SUBCUT SCH ×3 (10:21→18:08)
[2021-03-22] MEDS: fentaNYL INJ 5,000 MCG in SODIUM CHLORIDE 0.9% 150 ML IV PRN (15:30)
[2021-03-22] MEDS ORDERED: SODIUM CHLORIDE 0.9% 1,000 ML IV ONE (22:00)
[2021-03-23] MEDS: INSULIN REGULAR 100 UNIT/ML SUBCUT SCH ×4 (00:20→17:19)
[2021-03-23] MEDS: ALBUTEROL INHALER 18 GM INH SCH ×4 (01:17→20:15)
[2021-03-23 04:05] LABS: Basophils % 0.6 % (0.0-0.8); Eosinophils % 0.4 % (0.00-10.9); Hematocrit 38.9 VOL% (42.0-52.0); Hemoglobin 12.1 GM/DL (14.0-18.0); Immature Granulocytes % 3.3 %; Immature Granulocytes Absolute 0.23 #; Lymphocytes # 0.3 10*3/uL (1.4-4.0); Lymphocytes % 3.7 % (21.2-54.2); Mean Corpuscular HGB Conc 31.1 GM/DL (32-36); Mean Corpuscular Volume 87.2 FL (87-102); Mean Platelet Volume 9.9 FL (9.6-12.0); Monocytes % 4.3 % (1.7-12.7); Neutrophils % 87.7 % (38.7-73.9); Platelet Count 274 T/CUMM (130-400); Red Blood Count 4.46 MC/CUMM (3.8-5.5); Red Cell Distribution Width 14.6 % (9.3-17.3); White Blood Count 6.9 T/CUMM (4-12)
[2021-03-23 04:24] LABS: Band Neutrophils 3 % (0-10); Lymphocytes 5 % (20-55); Segmented Neutrophils 87 % (50-85); Total Cells Counted 100
[2021-03-23 04:25] LABS: Hypochromasia 1+; Microcytosis 1+
[2021-03-23 04:35] LABS: Calcium 8.3 MG/DL (8.5-10.1); Ferritin 332.3 ng/ml (26-388); Osmolality,Calculated 286.5 MOS/KG (273-304)
[2021-03-23] MEDS: SODIUM CHLORIDE 0.9% 1,000 ML IV SCH ×2 (04:45→17:19)
[2021-03-23 05:19] LABS: ABG Base Excess 6.5 MMOL/L (-2.5-2.5); ABG HCO3 31.8 MMOL/L (20-26); ABG Oxygen Saturation 95.4 % (95-100); ABG PCO2 48.4 MM HG (35-48); ABG PH 7.436 (7.35-7.45); ABG PO2 81.6 MM HG (80-95); ABG TCO2 33.3 MMOL/L (23-27); Allen Test Positive; Pt O2 Delivery Device Ventilator
[2021-03-23] MEDS: methylPREDNISolone SOD SUC 40 MG/1 ML VIAL IV SCH ×3 (05:57→22:05)
[2021-03-23] MEDS: ENOXAPARIN 100 MG/ML SYRINGE SUBCUT SCH ×2 (08:29→20:15)
[2021-03-23] MEDS: INSULIN GLARGINE 100 UNIT/ML SUBCUT SCH ×2 (08:29→20:15)
[2021-03-23] MEDS: CHOLECALCIFEROL 5,000 UNIT TABLET PO SCH (08:30)
[2021-03-23] MEDS: ASCORBIC ACID 500 MG TABLET PO SCH ×2 (08:30→20:15)
[2021-03-23] MEDS: ZINC GLUCONATE 50 MG TABLET PO SCH (08:30)
[2021-03-23] MEDS: NYSTATIN CREAM 15 GM TUBE TOP SCH ×2 (09:00→14:37)
[2021-03-23] MEDS: CETIRIZINE 10 MG TABLET PO SCH (09:00)
[2021-03-23] MEDS: FAMOTIDINE 20 MG TABLET PO SCH ×2 (09:00→20:15)
[2021-03-23] MEDS: NYSTATIN POWDER 15 GM BOTTLE TOP SCH ×2 (09:00→14:37)
[2021-03-23] MEDS: MIDAZOLAM 100 MG in SODIUM CHLORIDE 0.9% 80 ML IV PRN ×2 (10:35→21:50)
[2021-03-23] MEDS: lisinopriL 10 MG TABLET PO SCH (10:35)
[2021-03-23 12:01] LABS: Bilirubin,Urine Negative (Negative); Blood, Urine Negative (Negative); Glucose,Urine (UA) Negative (Negative); Ketones,Urine Negative (Negative); Mucus,Urine Occasional /LPF (Occasional); Nitrite,Urine Negative (Negative); Protein,Urine Negative; RBC,Urine 56 /HPF (0-4); Squamous Epithelial Cell,Urine Occasional /HPF (0-10); Urine Appearance Slightly Hazy (Clear); Urine Color Yellow (Yellow); Urine Specific Gravity 1.017 (1.001-1.035); Urine Urobilinogen < 2.0 EU/DL (0.2-1.0)
[2021-03-23] MEDS: ACETAMINOPHEN 325 MG TABLET PO PRN (14:38)
[2021-03-23] MEDS: POLYETHYLENE GLYCOL POWDER 17 GM PACK PO PRN (17:49)
[2021-03-24] MEDS: INSULIN REGULAR 100 UNIT/ML SUBCUT SCH ×4 (00:15→18:29)
[2021-03-24] MEDS: CLORAZEPATE 3.75 MG TABLET PO PRN (00:15)
[2021-03-24] MEDS: NYSTATIN POWDER 15 GM BOTTLE TOP SCH ×3 (00:30→15:36)
[2021-03-24] MEDS: NYSTATIN CREAM 15 GM TUBE TOP SCH ×3 (00:30→15:32)
[2021-03-24] MEDS: ALBUTEROL INHALER 18 GM INH SCH ×4 (01:20→19:40)
[2021-03-24 03:52] LABS: Basophils # 0.1 10*3/uL (0.0-0.2); Basophils % 0.7 % (0.0-0.8); Eosinophils % 0.5 % (0.00-10.9); Hematocrit 41.4 VOL% (42.0-52.0); Hemoglobin 12.9 GM/DL (14.0-18.0); Immature Granulocytes % 3.1 %; Immature Granulocytes Absolute 0.26 #; Lymphocytes # 0.2 10*3/uL (1.4-4.0); Lymphocytes % 2.9 % (21.2-54.2); Mean Corpuscular HGB Conc 31.2 GM/DL (32-36); Mean Corpuscular Volume 89.2 FL (87-102); Mean Platelet Volume 10.3 FL (9.6-12.0); Monocytes % 5.5 % (1.7-12.7); Neutrophils % 87.3 % (38.7-73.9); Platelet Count 277 T/CUMM (130-400); Red Blood Count 4.64 MC/CUMM (3.8-5.5); Red Cell Distribution Width 14.8 % (9.3-17.3); White Blood Count 8.4 T/CUMM (4-12)
[2021-03-24 04:04] LABS: Band Neutrophils 3 % (0-10); Hypochromasia 1+; Lymphocytes 3 % (20-55); Microcytosis 1+; Platelet Estimate Normal; Segmented Neutrophils 91 % (50-85); Total Cells Counted 100
[2021-03-24 04:14] LABS: Albumin 1.7 G/DL (3.4-5.0); Bilirubin,Total 0.4 MG/DL (0.20-1.00); Calcium 8.1 MG/DL (8.5-10.1); Potassium 4.6 MMOL/L (3.5-5.1); Total Protein 5.1 G/DL (6.4-8.2)
[2021-03-24 04:19] LABS: ABG Base Excess 6.1 MMOL/L (-2.5-2.5); ABG HCO3 29.8 MMOL/L (20-26); ABG Oxygen Saturation 94.7 % (95-100); ABG PCO2 55.6 MM HG (35-48); ABG PH 7.381 (7.35-7.45); ABG PO2 79.6 MM HG (80-95); ABG TCO2 28.9 MMOL/L (23-27); Allen Test Positive; Pt O2 Delivery Device Ventilator
[2021-03-24] MEDS: methylPREDNISolone SOD SUC 40 MG/1 ML VIAL IV SCH ×3 (05:39→17:57)
[2021-03-24] MEDS: SODIUM CHLORIDE 0.9% 1,000 ML IV SCH ×2 (05:39→19:39)
[2021-03-24] MEDS: fentaNYL INJ 5,000 MCG in SODIUM CHLORIDE 0.9% 150 ML IV PRN (07:56)
[2021-03-24] MEDS: MIDAZOLAM 100 MG in SODIUM CHLORIDE 0.9% 80 ML IV PRN ×2 (07:58→18:09)
[2021-03-24] MEDS: ASCORBIC ACID 500 MG TABLET PO SCH ×2 (08:37→21:25)
[2021-03-24] MEDS: CETIRIZINE 10 MG TABLET PO SCH (08:37)
[2021-03-24] MEDS: ENOXAPARIN 100 MG/ML SYRINGE SUBCUT SCH ×2 (08:38→21:25)
[2021-03-24] MEDS: ZINC GLUCONATE 50 MG TABLET PO SCH (08:38)
[2021-03-24] MEDS: CHOLECALCIFEROL 5,000 UNIT TABLET PO SCH (08:38)
[2021-03-24] MEDS: INSULIN GLARGINE 100 UNIT/ML SUBCUT SCH ×2 (08:39→21:25)
[2021-03-24] MEDS: FAMOTIDINE 20 MG TABLET PO SCH ×2 (08:42→21:25)
[2021-03-24] MEDS: lisinopriL 10 MG TABLET PO SCH (09:00)
[2021-03-24] MEDS: cefTRIAXone 1,000 MG in SODIUM CHLORIDE 0.9% 100 ML IV SCH (11:48)
[2021-03-24 16:58] LABS: ABG Base Excess 3.9 MMOL/L (-2.5-2.5); ABG HCO3 27.8 MMOL/L (20-26); ABG Oxygen Saturation 94.7 % (95-100); ABG PCO2 58.6 MM HG (35-48); ABG PO2 80.8 MM HG (80-95); ABG TCO2 27.6 MMOL/L (23-27)
[2021-03-24] MEDS: POLYETHYLENE GLYCOL POWDER 17 GM PACK PO PRN (17:21)
[2021-03-24] MEDS: ACETAMINOPHEN 325 MG TABLET PO PRN (21:26)
[2021-03-24] MEDS: CLORAZEPATE 3.75 MG TABLET PO SCH (22:35)
[2021-03-25] MEDS: MIDAZOLAM 100 MG in SODIUM CHLORIDE 0.9% 80 ML IV PRN ×4 (00:29→23:09)
[2021-03-25] MEDS: methylPREDNISolone SOD SUC 40 MG/1 ML VIAL IV SCH ×4 (00:32→17:19)
[2021-03-25] MEDS: INSULIN REGULAR 100 UNIT/ML SUBCUT SCH ×4 (00:32→17:50)
[2021-03-25] MEDS: ALBUTEROL INHALER 18 GM INH SCH ×4 (00:34→19:35)
[2021-03-25] MEDS: NYSTATIN POWDER 15 GM BOTTLE TOP SCH ×4 (01:17→21:18)
[2021-03-25] MEDS: NYSTATIN CREAM 15 GM TUBE TOP SCH ×4 (01:17→21:17)
[2021-03-25 03:32] LABS: ABG Base Excess 2.6 MMOL/L (-2.5-2.5); ABG HCO3 29.1 MMOL/L (20-26); ABG Oxygen Saturation 93.1 % (95-100); ABG PCO2 52.5 MM HG (35-48); ABG PH 7.361 (7.35-7.45); ABG PO2 74.1 MM HG (80-95); ABG TCO2 30.7 MMOL/L (23-27)
[2021-03-25 03:37] LABS: Basophils % 0.5 % (0.0-0.8); Hematocrit 42.6 VOL% (42.0-52.0); Hemoglobin 12.9 GM/DL (14.0-18.0); Immature Granulocytes % 2.1 %; Immature Granulocytes Absolute 0.18 #; Lymphocytes # 0.3 10*3/uL (1.4-4.0); Mean Corpuscular HGB Conc 30.3 GM/DL (32-36); Mean Corpuscular Volume 90.4 FL (87-102); Mean Platelet Volume 10.3 FL (9.6-12.0); Monocytes % 5.6 % (1.7-12.7); Neutrophils % 88.8 % (38.7-73.9); Platelet Count 223 T/CUMM (130-400); Red Blood Count 4.71 MC/CUMM (3.8-5.5); Red Cell Distribution Width 14.6 % (9.3-17.3); White Blood Count 8.4 T/CUMM (4-12)
[2021-03-25 04:13] LABS: Band Neutrophils 1 % (0-10); Lymphocytes 4 % (20-55); Platelet Estimate Normal; Segmented Neutrophils 91 % (50-85); Total Cells Counted 100
[2021-03-25 04:26] LABS: Calcium 7.6 MG/DL (8.5-10.1); Osmolality,Calculated 299.1 MOS/KG (273-304)
[2021-03-25] MEDS: CLORAZEPATE 3.75 MG TABLET PO SCH ×3 (05:11→21:18)
[2021-03-25] MEDS: SODIUM CHLORIDE 0.9% 1,000 ML IV SCH ×2 (06:01→19:35)
[2021-03-25 06:37] LABS: Albumin 1.7 G/DL (3.4-5.0); Bilirubin,Total 0.4 MG/DL (0.20-1.00); Calcium 8.2 MG/DL (8.5-10.1); Ferritin 552.6 ng/ml (26-388); Osmolality,Calculated 294.4 MOS/KG (273-304); Potassium 4.9 MMOL/L (3.5-5.1); Total Protein 5.4 G/DL (6.4-8.2)
[2021-03-25] MEDS ORDERED: ALBUMIN 25% 25 GM/100 ML VIAL IV ONE (07:40)
[2021-03-25] MEDS: CHOLECALCIFEROL 5,000 UNIT TABLET PO SCH (08:39)
[2021-03-25] MEDS: CETIRIZINE 10 MG TABLET PO SCH (08:40)
[2021-03-25] MEDS: FAMOTIDINE 20 MG TABLET PO SCH ×2 (08:40→21:18)
[2021-03-25] MEDS: ZINC GLUCONATE 50 MG TABLET PO SCH (08:40)
[2021-03-25] MEDS: ASCORBIC ACID 500 MG TABLET PO SCH ×2 (08:40→21:18)
[2021-03-25] MEDS: cefTRIAXone 1,000 MG in SODIUM CHLORIDE 0.9% 100 ML IV SCH (08:41)
[2021-03-25] MEDS: INSULIN GLARGINE 100 UNIT/ML SUBCUT SCH ×2 (08:41→21:17)
[2021-03-25] MEDS: ENOXAPARIN 100 MG/ML SYRINGE SUBCUT SCH ×2 (08:41→21:17)
[2021-03-25] MEDS ORDERED: FUROSEMIDE 40 MG/4 ML VIAL IV ONE (09:00)
[2021-03-25] MEDS: ACETAMINOPHEN 325 MG TABLET PO PRN ×2 (09:38→16:34)
[2021-03-25] MEDS: lisinopriL 10 MG TABLET PO SCH (09:38)
[2021-03-25] MEDS: POLYETHYLENE GLYCOL POWDER 17 GM PACK PO PRN (09:40)
[2021-03-25] MEDS ORDERED: ROCURONIUM 100 MG/10 ML VIAL IV ONE (10:58)
[2021-03-25] MEDS ORDERED: SODIUM BICARBONATE 50 MEQ/50 ML VIAL IV ONE (11:50)
[2021-03-25] MEDS ORDERED: NOREPINEPHRINE 8 MG in SODIUM CHLORIDE 0.9% 242 ML IV PRN (11:57)
[2021-03-25] MEDS ORDERED: ROCURONIUM 500 MG in SODIUM CHLORIDE 0.9% 500 ML IV PRN (11:58)
[2021-03-25 12:02] LABS: ABG Base Excess 3.2 MMOL/L (-2.5-2.5); ABG HCO3 27.1 MMOL/L (20-26); ABG Oxygen Saturation 90.9 % (95-100); ABG PCO2 50.8 MM HG (35-48); ABG PH 7.371 (7.35-7.45); ABG PO2 62.7 MM HG (80-95); ABG TCO2 26.2 MMOL/L (23-27)
[2021-03-25] MEDS ORDERED: NOREPINEPHRINE 4 MG/4 ML VIAL IV ONE (12:03)
[2021-03-25] MEDS ORDERED: SODIUM CHLORIDE 0.9% 500 ML IV ONE (12:30)
[2021-03-25] MEDS ORDERED: PHENYLEPHRINE DRIP 40 MG/250 ML PREMIX IV ONE (12:31)
[2021-03-25] MEDS: PHENYLEPHRINE DRIP 40 MG/250 ML PREMIX IV PRN ×3 (13:08→19:38)
[2021-03-25 13:32] LABS: ABG Base Excess 2.3 MMOL/L (-2.5-2.5); ABG HCO3 26.2 MMOL/L (20-26); ABG Oxygen Saturation 86.7 % (95-100); ABG PCO2 57.5 MM HG (35-48); ABG PH 7.328 (7.35-7.45); ABG PO2 57.7 MM HG (80-95)
[2021-03-25] MEDS: fentaNYL INJ 5,000 MCG in SODIUM CHLORIDE 0.9% 150 ML IV PRN ×2 (14:20→23:09)
[2021-03-25 15:21] LABS: ABG Base Excess 1.4 MMOL/L (-2.5-2.5); ABG HCO3 25.3 MMOL/L (20-26); ABG Oxygen Saturation 85.3 % (95-100); ABG PH 7.244 (7.35-7.45); ABG TCO2 28.2 MMOL/L (23-27)
[2021-03-25 15:23] LABS: ABG PCO2 73.4 MM HG (35-48)
[2021-03-25 17:32] LABS: ABG Base Excess -0.1 MMOL/L (-2.5-2.5); ABG HCO3 24.1 MMOL/L (20-26); ABG Oxygen Saturation 87.4 % (95-100); ABG PCO2 57.5 MM HG (35-48); ABG PH 7.294 (7.35-7.45); ABG PO2 60.6 MM HG (80-95); ABG TCO2 24.6 MMOL/L (23-27)
[2021-03-25] MEDS ORDERED: AMIODARONE 450 MG/9 ML VIAL IV ONE (17:36)
[2021-03-25] MEDS ORDERED: AMIODARONE 150 MG/3 ML VIAL ONE (17:36)
[2021-03-25] MEDS ORDERED: AMIODARONE INJ 150 MG in DEXTROSE 5% 100 ML IV ONE (17:44)
[2021-03-25] MEDS ORDERED: AMIODARONE INJ 450 MG in DEXTROSE 5% 241 ML IV SCH (18:00)
[2021-03-25] MEDS: ROCURONIUM 1,000 MG in SODIUM CHLORIDE 0.9% 175 ML IV PRN (20:20)
[2021-03-25] MEDS: PHENYLEPHRINE INJ 160 MG in SODIUM CHLORIDE 0.9% 234 ML IV PRN (20:30)
[2021-03-25] MEDS ORDERED: ALBUMIN 5% 12.5 GM/250 ML VIAL IV ONE (20:49)
[2021-03-26] MEDS: methylPREDNISolone SOD SUC 40 MG/1 ML VIAL IV SCH ×4 (00:07→17:51)
[2021-03-26] MEDS: INSULIN REGULAR 100 UNIT/ML SUBCUT SCH ×4 (00:07→17:50)
[2021-03-26] MEDS: AMIODARONE INJ 450 MG in DEXTROSE 5% 241 ML IV SCH ×3 (00:08→16:42)
[2021-03-26] MEDS: ACETAMINOPHEN 325 MG TABLET PO PRN ×4 (00:24→17:51)
[2021-03-26] MEDS: ALBUTEROL INHALER 18 GM INH SCH ×4 (00:24→20:20)
[2021-03-26] MEDS: PHENYLEPHRINE INJ 160 MG in SODIUM CHLORIDE 0.9% 234 ML IV PRN ×3 (01:52→13:11)
[2021-03-26 03:29] LABS: ABG Base Excess -1.6 MMOL/L (-2.5-2.5); ABG HCO3 25.6 MMOL/L (20-26); ABG Oxygen Saturation 89.4 % (95-100); ABG PCO2 53.2 MM HG (35-48); ABG PO2 62.6 MM HG (80-95); ABG TCO2 27.2 MMOL/L (23-27)
[2021-03-26 03:44] LABS: Basophils # 0.1 10*3/uL (0.0-0.2); Basophils % 0.4 % (0.0-0.8); Eosinophils % 0.1 % (0.00-10.9); Hematocrit 45.2 VOL% (42.0-52.0); Hemoglobin 13.9 GM/DL (14.0-18.0); Immature Granulocytes % 1.2 %; Immature Granulocytes Absolute 0.25 #; Lymphocytes # 0.4 10*3/uL (1.4-4.0); Lymphocytes % 1.7 % (21.2-54.2); Mean Corpuscular HGB Conc 30.8 GM/DL (32-36); Mean Corpuscular Volume 90.2 FL (87-102); Mean Platelet Volume 10.9 FL (9.6-12.0); Monocytes % 5.8 % (1.7-12.7); Neutrophils % 90.8 % (38.7-73.9); Platelet Count 334 T/CUMM (130-400); Red Blood Count 5.01 MC/CUMM (3.8-5.5); Red Cell Distribution Width 14.9 % (9.3-17.3); White Blood Count 20.7 T/CUMM (4-12)
[2021-03-26 04:12] LABS: Bilirubin,Total 0.6 MG/DL (0.20-1.00); Calcium 7.9 MG/DL (8.5-10.1); Ferritin 1215.8 ng/ml (26-388); Osmolality,Calculated 305.3 MOS/KG (273-304); Potassium 5.3 MMOL/L (3.5-5.1)
[2021-03-26] MEDS: CLORAZEPATE 3.75 MG TABLET PO SCH ×3 (04:36→20:24)
[2021-03-26] MEDS: MIDAZOLAM 100 MG in SODIUM CHLORIDE 0.9% 80 ML IV PRN ×3 (05:55→18:53)
[2021-03-26 06:07] LABS: Band Neutrophils 5 % (0-10); Lymphocytes 6 % (20-55); Platelet Estimate Adequate; Segmented Neutrophils 87 % (50-85); Total Cells Counted 100
[2021-03-26] MEDS: ROCURONIUM 1,000 MG in SODIUM CHLORIDE 0.9% 175 ML IV PRN ×2 (06:10→14:16)
[2021-03-26] MEDS: fentaNYL INJ 5,000 MCG in SODIUM CHLORIDE 0.9% 150 ML IV PRN ×3 (06:40→22:40)
[2021-03-26] MEDS: ENOXAPARIN 100 MG/ML SYRINGE SUBCUT SCH ×2 (08:17→20:24)
[2021-03-26] MEDS: INSULIN GLARGINE 100 UNIT/ML SUBCUT SCH ×2 (08:17→20:25)
[2021-03-26] MEDS: FAMOTIDINE 20 MG TABLET PO SCH ×2 (08:18→20:24)
[2021-03-26] MEDS: CETIRIZINE 10 MG TABLET PO SCH (08:18)
[2021-03-26] MEDS: ASCORBIC ACID 500 MG TABLET PO SCH ×2 (08:18→20:25)
[2021-03-26] MEDS: CHOLECALCIFEROL 5,000 UNIT TABLET PO SCH (08:18)
[2021-03-26] MEDS: ZINC GLUCONATE 50 MG TABLET PO SCH (08:18)
[2021-03-26] MEDS: cefTRIAXone 1,000 MG in SODIUM CHLORIDE 0.9% 100 ML IV SCH (08:30)
[2021-03-26] MEDS ORDERED: IBUPROFEN 100 MG/5 ML UDCUP PO PRN (09:13)
[2021-03-26] MEDS: lisinopriL 10 MG TABLET PO SCH (10:14)
[2021-03-26] MEDS: NYSTATIN POWDER 15 GM BOTTLE TOP SCH ×3 (10:14→21:18)
[2021-03-26] MEDS: NYSTATIN CREAM 15 GM TUBE TOP SCH ×3 (10:14→21:18)
[2021-03-26] MEDS: ALUMINUM/MAGNES/SIMETH MAX STR 30 ML UDCUP PO PRN ×2 (11:35→17:51)
[2021-03-26] MEDS: SODIUM CHLORIDE 0.9% 1,000 ML IV SCH (20:07)
[2021-03-27] MEDS: MIDAZOLAM 100 MG in SODIUM CHLORIDE 0.9% 80 ML IV PRN (01:19)
[2021-03-27] MEDS: ALBUTEROL INHALER 18 GM INH SCH ×4 (01:20→20:15)
[2021-03-27] MEDS: PHENYLEPHRINE INJ 160 MG in SODIUM CHLORIDE 0.9% 234 ML IV PRN ×2 (01:53→19:12)
[2021-03-27] MEDS: ROCURONIUM 1,000 MG in SODIUM CHLORIDE 0.9% 175 ML IV PRN (03:12)
[2021-03-27 03:38] LABS: ABG Base Excess 0.3 MMOL/L (-2.5-2.5); ABG HCO3 26.5 MMOL/L (20-26); ABG Oxygen Saturation 91.6 % (95-100); ABG PCO2 49.3 MM HG (35-48); ABG PH 7.348 (7.35-7.45); ABG PO2 66.4 MM HG (80-95)
[2021-03-27 04:15] LABS: Basophils % 0.3 % (0.0-0.8); Eosinophils % 0.1 % (0.00-10.9); Hematocrit 38.1 VOL% (42.0-52.0); Immature Granulocytes % 1.4 %; Immature Granulocytes Absolute 0.21 #; Lymphocytes # 0.5 10*3/uL (1.4-4.0); Lymphocytes % 3.4 % (21.2-54.2); Mean Corpuscular HGB Conc 30.7 GM/DL (32-36); Mean Corpuscular Volume 89.6 FL (87-102); Mean Platelet Volume 11.1 FL (9.6-12.0); Monocytes % 4.1 % (1.7-12.7); Neutrophils % 90.7 % (38.7-73.9); Red Blood Count 4.25 MC/CUMM (3.8-5.5); Red Cell Distribution Width 15.4 % (9.3-17.3); White Blood Count 14.6 T/CUMM (4-12)
[2021-03-27 04:35] LABS: Hemoglobin 11.7 GM/DL (14.0-18.0); Platelet Count 236 T/CUMM (130-400)
[2021-03-27 04:36] LABS: Albumin 1.6 G/DL (3.4-5.0); Bilirubin,Total 0.6 MG/DL (0.20-1.00); Calcium 7.9 MG/DL (8.5-10.1); Osmolality,Calculated 313.8 MOS/KG (273-304); Potassium 5.1 MMOL/L (3.5-5.1); Total Protein 5.5 G/DL (6.4-8.2)
[2021-03-27 04:47] LABS: Band Neutrophils 7 % (0-10); Lymphocytes 3 % (20-55); Segmented Neutrophils 86 % (50-85); Total Cells Counted 100
[2021-03-27 04:48] LABS: Hypochromasia 1+; Microcytosis 1+; Platelet Estimate Normal
[2021-03-27 05:35] LABS: Ferritin 899.3 ng/ml (26-388)
[2021-03-27] MEDS: ALUMINUM/MAGNES/SIMETH MAX STR 30 ML UDCUP PO SCH ×4 (06:25→17:50)
[2021-03-27] MEDS: INSULIN REGULAR 100 UNIT/ML SUBCUT SCH ×4 (06:25→17:51)
[2021-03-27] MEDS: CLORAZEPATE 3.75 MG TABLET PO SCH ×3 (06:25→20:12)
[2021-03-27] MEDS: methylPREDNISolone SOD SUC 40 MG/1 ML VIAL IV SCH ×4 (06:26→17:52)
[2021-03-27] MEDS: fentaNYL INJ 5,000 MCG in SODIUM CHLORIDE 0.9% 150 ML IV PRN (06:35)
[2021-03-27] MEDS: FAMOTIDINE 20 MG TABLET PO SCH ×2 (08:03→20:13)
[2021-03-27] MEDS: ZINC GLUCONATE 50 MG TABLET PO SCH (08:04)
[2021-03-27] MEDS: CETIRIZINE 10 MG TABLET PO SCH (08:04)
[2021-03-27] MEDS: ASCORBIC ACID 500 MG TABLET PO SCH ×2 (08:04→20:13)
[2021-03-27] MEDS: lisinopriL 10 MG TABLET PO SCH (08:04)
[2021-03-27] MEDS: ENOXAPARIN 100 MG/ML SYRINGE SUBCUT SCH ×2 (08:04→20:13)
[2021-03-27] MEDS: CHOLECALCIFEROL 5,000 UNIT TABLET PO SCH (08:04)
[2021-03-27] MEDS: INSULIN GLARGINE 100 UNIT/ML SUBCUT SCH ×2 (08:05→20:17)
[2021-03-27] MEDS: NYSTATIN CREAM 15 GM TUBE TOP SCH ×3 (08:33→20:15)
[2021-03-27] MEDS: ACETAMINOPHEN 325 MG TABLET PO PRN ×2 (08:33→17:58)
[2021-03-27] MEDS: NYSTATIN POWDER 15 GM BOTTLE TOP SCH ×3 (08:33→20:15)
[2021-03-27] MEDS: AMIODARONE INJ 450 MG in DEXTROSE 5% 241 ML IV SCH ×3 (09:25→22:09)
[2021-03-27] MEDS: cefTRIAXone 1,000 MG in SODIUM CHLORIDE 0.9% 100 ML IV SCH (09:33)
[2021-03-27] MEDS: METOCLOPRAMIDE 10 MG/2 ML VIAL IV SCH ×2 (11:50→17:51)
[2021-03-27] MEDS: MEROPENEM 500 MG in SODIUM CHLORIDE 0.9% 100 ML IV SCH ×2 (13:49→23:49)
[2021-03-27 16:53] LABS: Bacteria,Urine Occasional /HPF (Few); Bilirubin,Urine Negative (Negative); Blood, Urine Moderate mg/dL (Negative); Glucose,Urine (UA) Negative (Negative); Hyaline Casts,Urine 15 /LPF (0-3); Ketones,Urine Negative (Negative); Mucus,Urine Occasional /LPF (Occasional); Nitrite,Urine Negative (Negative); Protein,Urine Negative; RBC,Urine 59 /HPF (0-4); Urine Appearance CLOUDY (Clear); Urine Color Yellow (Yellow); Urine Specific Gravity 1.017 (1.001-1.035); Urine Urobilinogen < 2.0 EU/DL (0.2-1.0)
[2021-03-27] MEDS: SODIUM CHLORIDE 0.9% 1,000 ML IV SCH (22:10)
[2021-03-28] MEDS: methylPREDNISolone SOD SUC 40 MG/1 ML VIAL IV SCH ×4 (00:35→17:53)
[2021-03-28] MEDS: ALUMINUM/MAGNES/SIMETH MAX STR 30 ML UDCUP PO SCH ×4 (00:35→17:52)
[2021-03-28] MEDS: METOCLOPRAMIDE 10 MG/2 ML VIAL IV SCH ×4 (00:35→17:53)
[2021-03-28] MEDS: ACETAMINOPHEN 325 MG TABLET PO PRN (00:35)
[2021-03-28] MEDS: INSULIN REGULAR 100 UNIT/ML SUBCUT SCH ×4 (00:35→18:18)
[2021-03-28] MEDS: ALBUTEROL INHALER 18 GM INH SCH ×4 (01:00→18:20)
[2021-03-28] MEDS: AMIODARONE INJ 450 MG in DEXTROSE 5% 241 ML IV SCH (04:00)
[2021-03-28 04:28] LABS: ABG Base Excess 0.6 MMOL/L (-2.5-2.5); ABG Oxygen Saturation 92.2 % (95-100); ABG PCO2 50.9 MM HG (35-48); ABG PH 7.342 (7.35-7.45); ABG PO2 71.3 MM HG (80-95); ABG TCO2 28.5 MMOL/L (23-27)
[2021-03-28 04:33] LABS: Basophils % 0.2 % (0.0-0.8); Hematocrit 38.2 VOL% (42.0-52.0); Hemoglobin 11.9 GM/DL (14.0-18.0); Immature Granulocytes % 2.8 %; Lymphocytes # 0.6 10*3/uL (1.4-4.0); Lymphocytes % 3.1 % (21.2-54.2); Mean Corpuscular HGB Conc 31.2 GM/DL (32-36); Mean Corpuscular Volume 89.7 FL (87-102); Mean Platelet Volume 10.9 FL (9.6-12.0); Monocytes % 3.9 % (1.7-12.7); Platelet Count 213 T/CUMM (130-400); Red Blood Count 4.26 MC/CUMM (3.8-5.5); Red Cell Distribution Width 15.4 % (9.3-17.3); White Blood Count 17.9 T/CUMM (4-12)
[2021-03-28 04:53] LABS: Osmolality,Calculated 316.1 MOS/KG (273-304); Potassium 5.2 MMOL/L (3.5-5.1)
[2021-03-28 05:16] LABS: Band Neutrophils 2 % (0-10); Lymphocytes 2 % (20-55); Segmented Neutrophils 93 % (50-85); Total Cells Counted 100
[2021-03-28 05:17] LABS: Hypochromasia 1+; Microcytosis 1+
[2021-03-28] MEDS: CLORAZEPATE 3.75 MG TABLET PO SCH ×3 (05:23→22:26)
[2021-03-28] MEDS: ZINC GLUCONATE 50 MG TABLET PO SCH (08:41)
[2021-03-28] MEDS: CHOLECALCIFEROL 5,000 UNIT TABLET PO SCH (08:42)
[2021-03-28] MEDS: lisinopriL 10 MG TABLET PO SCH (08:42)
[2021-03-28] MEDS: ASCORBIC ACID 500 MG TABLET PO SCH ×2 (08:42→20:28)
[2021-03-28] MEDS: CETIRIZINE 10 MG TABLET PO SCH (08:42)
[2021-03-28] MEDS: FAMOTIDINE 20 MG TABLET PO SCH ×2 (08:42→20:28)
[2021-03-28] MEDS: ENOXAPARIN 100 MG/ML SYRINGE SUBCUT SCH ×2 (08:43→20:28)
[2021-03-28] MEDS: NYSTATIN CREAM 15 GM TUBE TOP SCH ×3 (08:44→20:28)
[2021-03-28] MEDS: INSULIN GLARGINE 100 UNIT/ML SUBCUT SCH ×2 (08:44→20:28)
[2021-03-28] MEDS: NYSTATIN POWDER 15 GM BOTTLE TOP SCH ×3 (08:44→20:28)
[2021-03-28] MEDS: FLUCONAZOLE 40 MG/ML 35 ML/BOTTLE PO SCH (09:33)
[2021-03-28] MEDS: AMIODARONE 200 MG TABLET PER TUBE SCH ×2 (10:09→20:29)
[2021-03-28] MEDS: MIDAZOLAM 100 MG in SODIUM CHLORIDE 0.9% 80 ML IV PRN ×2 (11:38→16:09)
[2021-03-28] MEDS: MEROPENEM 500 MG in SODIUM CHLORIDE 0.9% 100 ML IV SCH (11:45)
[2021-03-28 13:45] LABS: ABG Base Excess -0.8 MMOL/L (-2.5-2.5); ABG HCO3 25.5 MMOL/L (20-26); ABG Oxygen Saturation 88.3 % (95-100); ABG PCO2 49.4 MM HG (35-48); ABG PH 7.331 (7.35-7.45); ABG PO2 61.2 MM HG (80-95)
[2021-03-28] MEDS ORDERED: SODIUM POLYSTYRENE SULFATE 15 GM/60 ML BOTTLE PO ONE (14:30)
[2021-03-28] MEDS: ALBUMIN 5% 25 GM/500 ML VIAL IV SCH (16:07)
[2021-03-29] MEDS: MEROPENEM 500 MG in SODIUM CHLORIDE 0.9% 100 ML IV SCH ×2 (00:20→14:14)
[2021-03-29] MEDS: methylPREDNISolone SOD SUC 40 MG/1 ML VIAL IV SCH ×5 (00:45→21:00)
[2021-03-29] MEDS: METOCLOPRAMIDE 10 MG/2 ML VIAL IV SCH ×5 (00:45→23:21)
[2021-03-29] MEDS: ALUMINUM/MAGNES/SIMETH MAX STR 30 ML UDCUP PO SCH ×5 (00:45→23:21)
[2021-03-29] MEDS: ALBUMIN 5% 25 GM/500 ML VIAL IV SCH ×2 (00:45→08:18)
[2021-03-29] MEDS: INSULIN REGULAR 100 UNIT/ML SUBCUT SCH ×4 (00:45→17:34)
[2021-03-29] MEDS: MIDAZOLAM 100 MG in SODIUM CHLORIDE 0.9% 80 ML IV PRN ×3 (01:30→22:31)
[2021-03-29] MEDS: ALBUTEROL INHALER 18 GM INH SCH ×4 (01:41→18:00)
[2021-03-29] MEDS: SODIUM CHLORIDE 0.9% 1,000 ML IV SCH ×2 (03:51→19:00)
[2021-03-29 04:38] LABS: ABG Base Excess 2.3 MMOL/L (-2.5-2.5); ABG HCO3 26.3 MMOL/L (20-26); ABG PCO2 56.7 MM HG (35-48); ABG PH 7.326 (7.35-7.45); ABG TCO2 26.7 MMOL/L (23-27)
[2021-03-29 04:42] LABS: Basophils % 0.2 % (0.0-0.8); Hematocrit 34.8 VOL% (42.0-52.0); Hemoglobin 10.6 GM/DL (14.0-18.0); Immature Granulocytes Absolute 0.24 #; Lymphocytes # 0.3 10*3/uL (1.4-4.0); Lymphocytes % 2.3 % (21.2-54.2); Mean Corpuscular HGB Conc 30.5 GM/DL (32-36); Mean Corpuscular Volume 90.2 FL (87-102); Mean Platelet Volume 10.9 FL (9.6-12.0); Monocytes % 3.6 % (1.7-12.7); Neutrophils % 91.9 % (38.7-73.9); Platelet Count 155 T/CUMM (130-400); Red Blood Count 3.86 MC/CUMM (3.8-5.5); Red Cell Distribution Width 15.6 % (9.3-17.3); White Blood Count 11.8 T/CUMM (4-12)
[2021-03-29 04:58] LABS: Osmolality,Calculated 329.8 MOS/KG (273-304); Potassium 5.2 MMOL/L (3.5-5.1)
[2021-03-29 05:06] LABS: Band Neutrophils 1 % (0-10); Lymphocytes 3 % (20-55); Platelet Estimate Normal; Segmented Neutrophils 93 % (50-85); Total Cells Counted 100
[2021-03-29 05:07] LABS: Hypochromasia Slight
[2021-03-29 05:17] LABS: Ferritin 720.5 ng/mL (26-388)
[2021-03-29] MEDS: CLORAZEPATE 3.75 MG TABLET PO SCH ×3 (06:07→20:15)
[2021-03-29] MEDS: fentaNYL INJ 5,000 MCG in SODIUM CHLORIDE 0.9% 150 ML IV PRN ×2 (07:17→21:49)
[2021-03-29] MEDS ORDERED: SODIUM POLYSTYRENE SULFATE 15 GM/60 ML BOTTLE PO ONE (07:32)
[2021-03-29] MEDS: ASCORBIC ACID 500 MG TABLET PO SCH ×2 (08:19→20:15)
[2021-03-29] MEDS: ENOXAPARIN 100 MG/ML SYRINGE SUBCUT SCH ×2 (08:19→20:14)
[2021-03-29] MEDS: ZINC GLUCONATE 50 MG TABLET PO SCH (08:20)
[2021-03-29] MEDS: CETIRIZINE 10 MG TABLET PO SCH (08:20)
[2021-03-29] MEDS: FAMOTIDINE 20 MG TABLET PO SCH ×2 (08:20→20:15)
[2021-03-29] MEDS: AMIODARONE 200 MG TABLET PER TUBE SCH ×2 (08:20→20:15)
[2021-03-29] MEDS: CHOLECALCIFEROL 5,000 UNIT TABLET PO SCH (08:20)
[2021-03-29] MEDS: NYSTATIN CREAM 15 GM TUBE TOP SCH ×3 (08:21→20:15)
[2021-03-29] MEDS: INSULIN GLARGINE 100 UNIT/ML SUBCUT SCH ×2 (08:21→20:15)
[2021-03-29] MEDS: FLUCONAZOLE 40 MG/ML 35 ML/BOTTLE PO SCH (08:21)
[2021-03-29] MEDS: NYSTATIN POWDER 15 GM BOTTLE TOP SCH ×3 (08:22→20:15)
[2021-03-29] MEDS: lisinopriL 10 MG TABLET PO SCH (10:36)
[2021-03-29] MEDS: PHENYLEPHRINE INJ 160 MG in SODIUM CHLORIDE 0.9% 234 ML IV PRN (22:30)
[2021-03-30] MEDS: INSULIN REGULAR 100 UNIT/ML SUBCUT SCH ×5 (00:12→23:39)
[2021-03-30] MEDS: ALBUTEROL INHALER 18 GM INH SCH ×4 (00:41→20:14)
[2021-03-30] MEDS: MEROPENEM 500 MG in SODIUM CHLORIDE 0.9% 100 ML IV SCH ×2 (00:42→12:30)
[2021-03-30 03:34] LABS: ABG Base Excess 3.4 MMOL/L (-2.5-2.5); ABG HCO3 29.3 MMOL/L (20-26); ABG Oxygen Saturation 92.4 % (95-100); ABG PCO2 50.9 MM HG (35-48); ABG PH 7.378 (7.35-7.45); ABG PO2 68.6 MM HG (80-95); ABG TCO2 30.9 MMOL/L (23-27)
[2021-03-30 03:41] LABS: Basophils # 0.1 10*3/uL (0.0-0.2); Basophils % 0.2 % (0.0-0.8); Hematocrit 33.6 VOL% (42.0-52.0); Hemoglobin 10.1 GM/DL (14.0-18.0); Immature Granulocytes Absolute 0.44 #; Lymphocytes # 0.5 10*3/uL (1.4-4.0); Lymphocytes % 2.3 % (21.2-54.2); Mean Corpuscular HGB Conc 30.1 GM/DL (32-36); Mean Corpuscular Volume 90.6 FL (87-102); Monocytes % 2.9 % (1.7-12.7); NRBC # 0.02 10*3/uL; Neutrophils % 92.6 % (38.7-73.9); Platelet Count 212 T/CUMM (130-400); Red Blood Count 3.71 MC/CUMM (3.8-5.5); Red Cell Distribution Width 15.6 % (9.3-17.3); White Blood Count 21.7 T/CUMM (4-12)
[2021-03-30 04:02] LABS: Hypochromasia 1+; Lymphocytes 2 % (20-55); Microcytosis 1+; Platelet Estimate Adequate; Segmented Neutrophils 95 % (50-85); Total Cells Counted 100
[2021-03-30 04:07] LABS: Albumin 2.2 G/DL (3.4-5.0); Bilirubin,Total 0.6 MG/DL (0.20-1.00); Calcium 8.1 MG/DL (8.5-10.1); Ferritin 763.7 ng/mL (26-388); Potassium 5.1 MMOL/L (3.5-5.1); Total Protein 5.6 G/DL (6.4-8.2)
[2021-03-30] MEDS: CLORAZEPATE 3.75 MG TABLET PO SCH ×3 (05:13→20:17)
[2021-03-30] MEDS: methylPREDNISolone SOD SUC 40 MG/1 ML VIAL IV SCH ×3 (05:22→21:01)
[2021-03-30] MEDS: ALUMINUM/MAGNES/SIMETH MAX STR 30 ML UDCUP PO SCH ×4 (05:23→23:39)
[2021-03-30] MEDS: METOCLOPRAMIDE 10 MG/2 ML VIAL IV SCH ×4 (05:23→23:39)
[2021-03-30] MEDS: ENOXAPARIN 100 MG/ML SYRINGE SUBCUT SCH ×2 (08:05→20:14)
[2021-03-30] MEDS: AMIODARONE 200 MG TABLET PER TUBE SCH ×2 (08:06→20:17)
[2021-03-30] MEDS: CHOLECALCIFEROL 5,000 UNIT TABLET PO SCH (08:06)
[2021-03-30] MEDS: INSULIN GLARGINE 100 UNIT/ML SUBCUT SCH ×2 (08:06→20:14)
[2021-03-30] MEDS: FAMOTIDINE 20 MG TABLET PO SCH ×2 (08:06→20:17)
[2021-03-30] MEDS: ASCORBIC ACID 500 MG TABLET PO SCH ×2 (08:06→20:17)
[2021-03-30] MEDS: NYSTATIN POWDER 15 GM BOTTLE TOP SCH (08:07)
[2021-03-30] MEDS: NYSTATIN CREAM 15 GM TUBE TOP SCH (08:07)
[2021-03-30] MEDS: CETIRIZINE 10 MG TABLET PO SCH (08:07)
[2021-03-30] MEDS: FLUCONAZOLE 40 MG/ML 35 ML/BOTTLE PO SCH (08:07)
[2021-03-30] MEDS: ZINC GLUCONATE 50 MG TABLET PO SCH (08:09)
[2021-03-30] MEDS: lisinopriL 10 MG TABLET PO SCH (09:16)
[2021-03-30] MEDS: fentaNYL INJ 5,000 MCG in SODIUM CHLORIDE 0.9% 150 ML IV PRN (13:34)
[2021-03-30] MEDS: MIDAZOLAM 100 MG in SODIUM CHLORIDE 0.9% 80 ML IV PRN (16:59)
[2021-03-30] MEDS: DESITIN 4OZ/NYSTATIN 15 GRAM MIXTURE PASTE TOP SCH (20:17)
[2021-03-30] MEDS: SODIUM CHLORIDE 0.9% 1,000 ML IV SCH (21:02)
[2021-03-30] MEDS: ROCURONIUM 1,000 MG in SODIUM CHLORIDE 0.9% 175 ML IV PRN (21:18)
[2021-03-31] MEDS: fentaNYL INJ 5,000 MCG in SODIUM CHLORIDE 0.9% 150 ML IV PRN ×3 (00:43→21:18)
[2021-03-31] MEDS: MEROPENEM 500 MG in SODIUM CHLORIDE 0.9% 100 ML IV SCH ×2 (00:52→14:40)
[2021-03-31] MEDS: ALBUTEROL INHALER 18 GM INH SCH ×4 (00:52→18:12)
[2021-03-31 04:12] LABS: ABG Base Excess 2.7 MMOL/L (-2.5-2.5); ABG HCO3 26.7 MMOL/L (20-26); ABG Oxygen Saturation 91.1 % (95-100); ABG PH 7.251 (7.35-7.45); ABG PO2 72.1 MM HG (80-95); ABG TCO2 29.5 MMOL/L (23-27)
[2021-03-31 04:15] LABS: ABG PCO2 74.3 MM HG (35-48)
[2021-03-31 04:17] LABS: Basophils # 0.1 10*3/uL (0.0-0.2); Basophils % 0.3 % (0.0-0.8); Hematocrit 34.7 VOL% (42.0-52.0); Hemoglobin 10.3 GM/DL (14.0-18.0); Immature Granulocytes % 2.7 %; Immature Granulocytes Absolute 0.51 #; Lymphocytes # 0.4 10*3/uL (1.4-4.0); Lymphocytes % 2.2 % (21.2-54.2); Mean Corpuscular HGB Conc 29.7 GM/DL (32-36); Mean Corpuscular Volume 93.3 FL (87-102); Mean Platelet Volume 11.1 FL (9.6-12.0); Monocytes % 2.3 % (1.7-12.7); Neutrophils % 92.5 % (38.7-73.9); Platelet Count 173 T/CUMM (130-400); Red Blood Count 3.72 MC/CUMM (3.8-5.5); Red Cell Distribution Width 15.9 % (9.3-17.3); White Blood Count 18.8 T/CUMM (4-12)
[2021-03-31 04:28] LABS: Hypochromasia 1+; Lymphocytes 1 % (20-55); Microcytosis 1+; Platelet Estimate Adequate; Segmented Neutrophils 98 % (50-85); Total Cells Counted 100
[2021-03-31 04:40] LABS: Calcium 8.4 MG/DL (8.5-10.1); Osmolality,Calculated 333.3 MOS/KG (273-304)
[2021-03-31] MEDS ORDERED: SODIUM BICARBONATE 50 MEQ/50 ML VIAL IV ONE (04:45)
[2021-03-31] MEDS ORDERED: SODIUM POLYSTYRENE SULFATE 15 GM/60 ML BOTTLE PO ONE ×2 (04:45→17:50)
[2021-03-31] MEDS ORDERED: INSULIN REGULAR 10 UNIT, CALCIUM GLUCONATE 1,000 MG in DEXTROSE 10% 250 ML IV ONE ×2 (05:00→18:30)
[2021-03-31 05:01] LABS: Ferritin 944.9 ng/mL (26-388)
[2021-03-31] MEDS: methylPREDNISolone SOD SUC 40 MG/1 ML VIAL IV SCH ×4 (05:15→20:15)
[2021-03-31] MEDS: METOCLOPRAMIDE 10 MG/2 ML VIAL IV SCH ×3 (05:19→17:23)
[2021-03-31] MEDS: CLORAZEPATE 3.75 MG TABLET PO SCH ×3 (05:21→21:18)
[2021-03-31] MEDS: MIDAZOLAM 100 MG in SODIUM CHLORIDE 0.9% 80 ML IV PRN ×2 (05:21→21:17)
[2021-03-31] MEDS: INSULIN REGULAR 100 UNIT/ML SUBCUT SCH ×3 (05:21→17:23)
[2021-03-31] MEDS: ALUMINUM/MAGNES/SIMETH MAX STR 30 ML UDCUP PO SCH ×3 (05:21→17:24)
[2021-03-31] MEDS: PHENYLEPHRINE INJ 160 MG in SODIUM CHLORIDE 0.9% 234 ML IV PRN ×5 (06:20→22:22)
[2021-03-31 06:27] LABS: ABG Base Excess 3.6 MMOL/L (-2.5-2.5); ABG HCO3 27.5 MMOL/L (20-26); ABG PH 7.269 (7.35-7.45); ABG PO2 70.4 MM HG (80-95); ABG TCO2 30.1 MMOL/L (23-27)
[2021-03-31 06:28] LABS: ABG PCO2 70.6 MM HG (35-48)
[2021-03-31] MEDS ORDERED: SODIUM ZIRCONIUM CYCLOSILICATE 10 GM PACK PO ONE (07:49)
[2021-03-31] MEDS: CHOLECALCIFEROL 5,000 UNIT TABLET PO SCH (08:32)
[2021-03-31] MEDS: ASCORBIC ACID 500 MG TABLET PO SCH ×2 (08:32→20:15)
[2021-03-31] MEDS: ZINC GLUCONATE 50 MG TABLET PO SCH (08:32)
[2021-03-31] MEDS: AMIODARONE 200 MG TABLET PER TUBE SCH ×2 (08:32→20:15)
[2021-03-31] MEDS: INSULIN GLARGINE 100 UNIT/ML SUBCUT SCH ×2 (08:32→21:17)
[2021-03-31] MEDS: ENOXAPARIN 100 MG/ML SYRINGE SUBCUT SCH ×2 (08:32→20:14)
[2021-03-31] MEDS: FAMOTIDINE 20 MG TABLET PO SCH ×2 (08:33→20:15)
[2021-03-31] MEDS: FLUCONAZOLE 40 MG/ML 35 ML/BOTTLE PO SCH (08:35)
[2021-03-31] MEDS: DESITIN 4OZ/NYSTATIN 15 GRAM MIXTURE PASTE TOP SCH ×2 (08:36→21:17)
[2021-03-31] MEDS: CETIRIZINE 10 MG TABLET PO SCH (09:03)
[2021-03-31] MEDS: ROCURONIUM 1,000 MG in SODIUM CHLORIDE 0.9% 175 ML IV PRN ×2 (09:28→19:04)
[2021-03-31 09:42] LABS: ABG Base Excess 4.8 MMOL/L (-2.5-2.5); ABG HCO3 28.6 MMOL/L (20-26); ABG Oxygen Saturation 89.2 % (95-100); ABG PCO2 63.9 MM HG (35-48); ABG PH 7.315 (7.35-7.45); ABG PO2 62.5 MM HG (80-95); ABG TCO2 30.1 MMOL/L (23-27)
[2021-03-31] MEDS ORDERED: NOREPINEPHRINE 16 MG in SODIUM CHLORIDE 0.9% 234 ML IV PRN (10:13)
[2021-03-31] MEDS ORDERED: SODIUM CHLORIDE 0.9% 500 ML IV ONE ×2 (10:14→12:38)
[2021-03-31] MEDS: SODIUM ZIRCONIUM CYCLOSILICATE 10 GM PACK PO SCH ×3 (10:16→21:17)
[2021-03-31] MEDS ORDERED: DOBUTamine 500 MG/250 ML PREMIX IV PRN (13:34)
[2021-03-31] MEDS: SODIUM CHLORIDE 0.9% 1,000 ML IV SCH (21:19)
[2021-04-01 00:35] LABS: ABG Base Excess 5.4 MMOL/L (-2.5-2.5); ABG Oxygen Saturation 84.3 % (95-100); ABG PCO2 59.6 MM HG (35-48); ABG PH 7.346 (7.35-7.45); ABG PO2 52.8 MM HG (80-95); ABG TCO2 29.9 MMOL/L (23-27)
[2021-04-01] MEDS: INSULIN REGULAR 100 UNIT/ML SUBCUT SCH ×4 (01:27→17:35)
[2021-04-01] MEDS: ALUMINUM/MAGNES/SIMETH MAX STR 30 ML UDCUP PO SCH ×4 (01:28→17:35)
[2021-04-01] MEDS: METOCLOPRAMIDE 10 MG/2 ML VIAL IV SCH ×4 (01:28→17:35)
[2021-04-01] MEDS: ALBUTEROL INHALER 18 GM INH SCH ×4 (01:29→18:21)
[2021-04-01] MEDS: MEROPENEM 500 MG in SODIUM CHLORIDE 0.9% 100 ML IV SCH ×2 (01:55→12:43)
[2021-04-01] MEDS: methylPREDNISolone SOD SUC 40 MG/1 ML VIAL IV SCH ×4 (02:40→21:43)
[2021-04-01] MEDS: ROCURONIUM 1,000 MG in SODIUM CHLORIDE 0.9% 175 ML IV PRN ×3 (03:31→18:12)
[2021-04-01 04:47] LABS: ABG Base Excess 4.2 MMOL/L (-2.5-2.5); ABG HCO3 31.1 MMOL/L (20-26); ABG Oxygen Saturation 87.2 % (95-100); ABG PCO2 58.5 MM HG (35-48); ABG PH 7.343 (7.35-7.45); ABG PO2 60.1 MM HG (80-95); ABG TCO2 32.9 MMOL/L (23-27)
[2021-04-01 05:05] LABS: Basophils # 0.1 10*3/uL (0.0-0.2); Basophils % 0.3 % (0.0-0.8); Hematocrit 33.2 VOL% (42.0-52.0); Hemoglobin 9.8 GM/DL (14.0-18.0); Immature Granulocytes % 5.7 %; Immature Granulocytes Absolute 1.32 #; Lymphocytes # 0.4 10*3/uL (1.4-4.0); Lymphocytes % 1.6 % (21.2-54.2); Mean Corpuscular HGB Conc 29.5 GM/DL (32-36); Mean Corpuscular Volume 92.7 FL (87-102); Mean Platelet Volume 11.5 FL (9.6-12.0); Monocytes % 2.1 % (1.7-12.7); NRBC # 0.03 10*3/uL; Neutrophils % 90.3 % (38.7-73.9); Platelet Count 205 T/CUMM (130-400); Red Blood Count 3.58 MC/CUMM (3.8-5.5); White Blood Count 23.3 T/CUMM (4-12)
[2021-04-01 05:26] LABS: Calcium 8.3 MG/DL (8.5-10.1); Ferritin 1052.4 ng/mL (26-388); Osmolality,Calculated 334.4 MOS/KG (273-304); Potassium 5.5 MMOL/L (3.5-5.1)
[2021-04-01] MEDS: CLORAZEPATE 3.75 MG TABLET PO SCH (05:38)
[2021-04-01] MEDS: MIDAZOLAM 100 MG in SODIUM CHLORIDE 0.9% 80 ML IV PRN ×4 (06:15→22:33)
[2021-04-01] MEDS: fentaNYL INJ 5,000 MCG in SODIUM CHLORIDE 0.9% 150 ML IV PRN ×2 (06:57→16:12)
[2021-04-01 07:09] LABS: Band Neutrophils 4 % (0-10); Hypochromasia Slight; Lymphocytes 1 % (20-55); Platelet Estimate Normal; Segmented Neutrophils 94 % (50-85); Total Cells Counted 100
[2021-04-01] MEDS: ZINC GLUCONATE 50 MG TABLET PO SCH (08:03)
[2021-04-01] MEDS: ASCORBIC ACID 500 MG TABLET PO SCH ×2 (08:03→21:44)
[2021-04-01] MEDS: ENOXAPARIN 100 MG/ML SYRINGE SUBCUT SCH (08:03)
[2021-04-01] MEDS: CHOLECALCIFEROL 5,000 UNIT TABLET PO SCH (08:04)
[2021-04-01] MEDS: FLUCONAZOLE 40 MG/ML 35 ML/BOTTLE PO SCH (08:04)
[2021-04-01] MEDS: FAMOTIDINE 20 MG TABLET PO SCH ×2 (08:04→21:43)
[2021-04-01] MEDS: AMIODARONE 200 MG TABLET PER TUBE SCH ×2 (08:04→21:43)
[2021-04-01] MEDS: CETIRIZINE 10 MG TABLET PO SCH (08:04)
[2021-04-01] MEDS: INSULIN GLARGINE 100 UNIT/ML SUBCUT SCH ×2 (08:05→21:43)
[2021-04-01] MEDS: SODIUM ZIRCONIUM CYCLOSILICATE 10 GM PACK PO SCH ×3 (08:06→21:43)
[2021-04-01] MEDS: DESITIN 4OZ/NYSTATIN 15 GRAM MIXTURE PASTE TOP SCH ×2 (08:07→21:43)
[2021-04-01 08:27] LABS: ABG Base Excess 5.1 MMOL/L (-2.5-2.5); ABG HCO3 28.8 MMOL/L (20-26); ABG Oxygen Saturation 86.5 % (95-100); ABG PCO2 64.6 MM HG (35-48); ABG PH 7.316 (7.35-7.45); ABG PO2 58.4 MM HG (80-95); ABG TCO2 30.4 MMOL/L (23-27)
[2021-04-01 16:56] LABS: INR 1.2; PT Patient Result 13.5 SECS (10.5-12.0)
[2021-04-01] MEDS: SODIUM CHLORIDE 0.9% 1,000 ML IV SCH (21:46)
[2021-04-02] MEDS: ALUMINUM/MAGNES/SIMETH MAX STR 30 ML UDCUP PO SCH ×4 (00:26→18:23)
[2021-04-02] MEDS: ALBUTEROL INHALER 18 GM INH SCH ×4 (00:26→18:23)
[2021-04-02] MEDS: INSULIN REGULAR 100 UNIT/ML SUBCUT SCH ×4 (00:26→18:21)
[2021-04-02] MEDS: METOCLOPRAMIDE 10 MG/2 ML VIAL IV SCH ×4 (00:26→18:22)
[2021-04-02] MEDS: fentaNYL INJ 5,000 MCG in SODIUM CHLORIDE 0.9% 150 ML IV PRN ×2 (01:13→10:16)
[2021-04-02] MEDS: ROCURONIUM 1,000 MG in SODIUM CHLORIDE 0.9% 175 ML IV PRN ×3 (01:43→22:10)
[2021-04-02] MEDS: MEROPENEM 500 MG in SODIUM CHLORIDE 0.9% 100 ML IV SCH ×2 (01:58→13:46)
[2021-04-02] MEDS: methylPREDNISolone SOD SUC 40 MG/1 ML VIAL IV SCH ×4 (01:58→20:24)
[2021-04-02] MEDS: PHENYLEPHRINE INJ 160 MG in SODIUM CHLORIDE 0.9% 234 ML IV PRN (02:30)
[2021-04-02 04:38] LABS: ABG Base Excess 5.5 MMOL/L (-2.5-2.5); ABG HCO3 32.8 MMOL/L (20-26); ABG Oxygen Saturation 84.6 % (95-100); ABG PCO2 63.3 MM HG (35-48); ABG PH 7.332 (7.35-7.45); ABG PO2 55.8 MM HG (80-95); ABG TCO2 34.7 MMOL/L (23-27)
[2021-04-02] MEDS: MIDAZOLAM 100 MG in SODIUM CHLORIDE 0.9% 80 ML IV PRN ×2 (04:40→21:19)
[2021-04-02 04:41] LABS: Basophils % 0.2 % (0.0-0.8); Eosinophils % 0.1 % (0.00-10.9); Hematocrit 33.6 VOL% (42.0-52.0); Immature Granulocytes % 4.2 %; Immature Granulocytes Absolute 0.79 #; Lymphocytes # 0.4 10*3/uL (1.4-4.0); Lymphocytes % 1.9 % (21.2-54.2); Mean Corpuscular HGB Conc 29.8 GM/DL (32-36); Mean Corpuscular Volume 92.8 FL (87-102); Mean Platelet Volume 11.3 FL (9.6-12.0); Monocytes % 1.8 % (1.7-12.7); NRBC # 0.04 10*3/uL; Neutrophils % 91.8 % (38.7-73.9); Platelet Count 191 T/CUMM (130-400); Red Blood Count 3.62 MC/CUMM (3.8-5.5); Red Cell Distribution Width 16.3 % (9.3-17.3); White Blood Count 18.7 T/CUMM (4-12)
[2021-04-02 05:17] LABS: Calcium 8.3 MG/DL (8.5-10.1); Osmolality,Calculated 340.1 MOS/KG (273-304); Potassium 5.5 MMOL/L (3.5-5.1)
[2021-04-02 05:47] LABS: Ferritin 1154.5 ng/mL (26-388)
[2021-04-02 06:57] LABS: Anisocytosis 2+; Band Neutrophils 13 % (0-10); Basophilic Stippling Slight; Macrocytosis Slight; Myelocytes 1 %; Nucleated Red Blood Cells 2 (0-5); Platelet Estimate Normal; Segmented Neutrophils 85 % (50-85); Total Cells Counted 100
[2021-04-02] MEDS: INSULIN GLARGINE 100 UNIT/ML SUBCUT SCH ×2 (09:09→20:24)
[2021-04-02] MEDS: CHOLECALCIFEROL 5,000 UNIT TABLET PO SCH (09:10)
[2021-04-02] MEDS: ZINC GLUCONATE 50 MG TABLET PO SCH (09:10)
[2021-04-02] MEDS: CETIRIZINE 10 MG TABLET PO SCH (09:11)
[2021-04-02] MEDS: ASCORBIC ACID 500 MG TABLET PO SCH ×2 (09:11→20:24)
[2021-04-02] MEDS: AMIODARONE 200 MG TABLET PER TUBE SCH ×2 (09:11→20:24)
[2021-04-02] MEDS: FAMOTIDINE 20 MG TABLET PO SCH ×2 (09:11→20:24)
[2021-04-02] MEDS: FLUCONAZOLE 40 MG/ML 35 ML/BOTTLE PO SCH (09:12)
[2021-04-02] MEDS: DESITIN 4OZ/NYSTATIN 15 GRAM MIXTURE PASTE TOP SCH ×2 (09:12→20:24)
[2021-04-02] MEDS: SODIUM ZIRCONIUM CYCLOSILICATE 10 GM PACK PO SCH (13:46)
[2021-04-02 16:38] VITALS: BP 115/67
[2021-04-02] MEDS: SODIUM CHLORIDE 0.9% 1,000 ML IV SCH (21:20)
[2021-04-02] MEDS: ENOXAPARIN 100 MG/ML SYRINGE SUBCUT SCH (22:04)
[2021-04-03] MEDS: INSULIN REGULAR 100 UNIT/ML SUBCUT SCH ×4 (01:10→17:47)
[2021-04-03] MEDS: METOCLOPRAMIDE 10 MG/2 ML VIAL IV SCH ×4 (01:19→18:00)
[2021-04-03] MEDS: ALUMINUM/MAGNES/SIMETH MAX STR 30 ML UDCUP PO SCH ×4 (01:19→18:00)
[2021-04-03] MEDS: ROCURONIUM 1,000 MG in SODIUM CHLORIDE 0.9% 175 ML IV PRN ×3 (01:19→17:27)
[2021-04-03] MEDS: MEROPENEM 500 MG in SODIUM CHLORIDE 0.9% 100 ML IV SCH ×2 (01:20→13:26)
[2021-04-03] MEDS: ALBUTEROL INHALER 18 GM INH SCH ×4 (01:20→18:01)
[2021-04-03] MEDS: PHENYLEPHRINE INJ 160 MG in SODIUM CHLORIDE 0.9% 234 ML IV PRN ×2 (01:58→15:24)
[2021-04-03] MEDS: methylPREDNISolone SOD SUC 40 MG/1 ML VIAL IV SCH ×3 (02:10→15:07)
[2021-04-03] MEDS: MIDAZOLAM 100 MG in SODIUM CHLORIDE 0.9% 80 ML IV PRN ×3 (02:11→15:11)
[2021-04-03 02:39] LABS: ABG Base Excess 5.2 MMOL/L (-2.5-2.5); ABG HCO3 32.8 MMOL/L (20-26); ABG Oxygen Saturation 82.4 % (95-100); ABG PCO2 65.8 MM HG (35-48); ABG PH 7.316 (7.35-7.45); ABG PO2 53.9 MM HG (80-95); ABG TCO2 34.9 MMOL/L (23-27)
[2021-04-03 04:45] LABS: Basophils # 0.1 10*3/uL (0.0-0.2); Basophils % 0.3 % (0.0-0.8); Eosinophils % 0.1 % (0.00-10.9); Hematocrit 33.5 VOL% (42.0-52.0); Hemoglobin 9.9 GM/DL (14.0-18.0); Immature Granulocytes % 3.7 %; Immature Granulocytes Absolute 0.71 #; Lymphocytes # 0.4 10*3/uL (1.4-4.0); Lymphocytes % 2.1 % (21.2-54.2); Mean Corpuscular HGB Conc 29.6 GM/DL (32-36); Mean Corpuscular Volume 94.4 FL (87-102); Mean Platelet Volume 11.6 FL (9.6-12.0); Monocytes % 2.1 % (1.7-12.7); NRBC # 0.06 10*3/uL; Neutrophils % 91.7 % (38.7-73.9); Platelet Count 176 T/CUMM (130-400); Red Blood Count 3.55 MC/CUMM (3.8-5.5); Red Cell Distribution Width 16.4 % (9.3-17.3); White Blood Count 19.3 T/CUMM (4-12)
[2021-04-03 04:55] LABS: Lymphocytes 1 % (20-55); Segmented Neutrophils 98 % (50-85); Total Cells Counted 100
[2021-04-03 04:56] LABS: Hypochromasia 1+; Microcytosis 1+; Platelet Estimate Adequate
[2021-04-03 05:08] LABS: Calcium 8.1 MG/DL (8.5-10.1); Osmolality,Calculated 341.9 MOS/KG (273-304); Potassium 5.5 MMOL/L (3.5-5.1)
[2021-04-03] MEDS: fentaNYL INJ 5,000 MCG in SODIUM CHLORIDE 0.9% 150 ML IV PRN ×2 (05:11→15:11)
[2021-04-03] MEDS: ENOXAPARIN 100 MG/ML SYRINGE SUBCUT SCH (08:16)
[2021-04-03] MEDS: SODIUM ZIRCONIUM CYCLOSILICATE 10 GM PACK PO SCH (08:17)
[2021-04-03] MEDS: INSULIN GLARGINE 100 UNIT/ML SUBCUT SCH ×2 (08:17→08:30)
[2021-04-03] MEDS: CETIRIZINE 10 MG TABLET PO SCH (08:18)
[2021-04-03] MEDS: ASCORBIC ACID 500 MG TABLET PO SCH (08:18)
[2021-04-03] MEDS: ZINC GLUCONATE 50 MG TABLET PO SCH (08:18)
[2021-04-03] MEDS: AMIODARONE 200 MG TABLET PER TUBE SCH (08:18)
[2021-04-03] MEDS: FAMOTIDINE 20 MG TABLET PO SCH (08:18)
[2021-04-03] MEDS: CHOLECALCIFEROL 5,000 UNIT TABLET PO SCH (08:18)
[2021-04-03] MEDS: FLUCONAZOLE 40 MG/ML 35 ML/BOTTLE PO SCH (08:19)
[2021-04-03] MEDS: DESITIN 4OZ/NYSTATIN 15 GRAM MIXTURE PASTE TOP SCH (08:20)
[2021-04-03] MEDS ORDERED: FUROSEMIDE 100 MG/10 ML VIAL IV ONE (08:27)
[2021-04-03] MEDS ORDERED: DEXTROSE 5% 1,000 ML IV SCH ×2 (08:30→20:00)
== END 2021-04-03 18:25 | disposition expired | DRG 207 ==
LOC: EDBD → EDUNIT# → N.ED 20:12 → N.EDINP 03-13 02:32 → SUATTDRO 03-13 02:32 → N.2E 03-13 19:34 → N.CC 03-19 16:20
PROVIDERS: ADMIT Internal Medicine; ATTEND Internal Medicine